=== PATIENT | male | born 1955 | race Caucasian/White ===

== ENCOUNTER → 2017-12-06 15:32 | Outpatient (CLI) | payer OTHER, SELFPAY | PROVIDERS: Family Provider Family Medicine Geriatric Medicine; PCP Family Medicine Geriatric Medicine; Visit Provider Family Medicine Geriatric Medicine | DX: R68.83 Chills (without fever) (principal) | CPT/HCPCS: 87633 ==

== ENCOUNTER → 2018-01-11 06:20 | Outpatient (CLI) | payer OTHER, SELFPAY ==
[2018-01-11 07:35] LABS: Absolute Lymphocyte Count 1.45 X10^3/ul (0.83-4.51); Absolute Neutrophil Count 2.6 X10^3/uL (2.0-7.7); Basophil# 0.04 X10^3/uL; Basophil% 0.9 % (0-1); Eosinophil# 0.08 X10^3/uL; Eosinophils% 1.7 % (0-5); Hematocrit 43.4 % (40-54); Hemoglobin 14.6 g/dl (13.0-16.5); Lymphocyte # 1.45 X10^3/ul (4.0); Lymphocyte % 30.9 % (19-41); Mean Corp Hgb Conc 33.6 g/gl (32-36); Mean Corpuscular Hgb 31.1 pg (27.0-32.0); Mean Corpuscular Volume 92.5 fL (80-94); Mean Platelet Vol. 9.2 fl (6.2-12.0); Monocyte# 0.55 X10^3/uL; Monocyte% 11.7 % (0-10); Neutrophil # 2.57 X10^3/uL (2.7-7.7); Neutrophil % 54.8 % (47-70); Platelet Count 180 K/mm3 (150-450); RBC Distribution Width CV 13.7 % (11.6-14.6); RBC Distribution Width SD 45.7 fl (35.1-43.9); Red Blood Count 4.69 M/mm3 (4.6-6.2); White Blood Count 4.7 K/mm3 (4.4-11.0)
[2018-01-11 07:39] LABS: POSITIVE COUNT NO; POSITIVE DIFFERENTIAL NO; POSITIVE MORPHOLOGY NO
[2018-01-11 08:08] LABS: ALB/GLOB Ratio 1.1 RATIO (0.9-2.4); AST(SGOT) 21 U/L (15-37); Alanine Aminotransfer ALT/SGPT 50 U/L (16-61); Albumin, Serum 3.5 g/dL (3.2-5.0); Alkaline Phosphatase 53 U/L (45-117); Anion Gap 9 (5-15); BUN 14 mg/dL (7-18); BUN/Creat Ratio 11.3 RATIO (10-20); Calcium,Total 8.8 mg/dL (8.5-10.1); Chloride 102 mmol/L (98-107); Cholesterol 238 mg/dL (200); Creatinine, Serum 1.24 mg/dL (0.70-1.30); EST Glomerular Filtration Rate 63 mL/min (>60); Est Glom Filt Rate - Afr Amer 76 mL/min (>60); Globulin 3.1 g/dL (2.2-4.2); Glucose 139 mg/dL (74-106); High Density Lipoprotein 33 mg/dL; Potassium 3.2 mmol/L (3.5-5.1); Protein, Total 6.6 g/dL (6.4-8.2); Sodium Level 140 mmol/L (136-145); Thyroid Stim Hormone (TSH) 4.83 uIU/mL (0.358-3.74); Triglycerides 247 mg/dL; Very Low Density Lipoprotein 49 mg/dL (5-40)
== END ==
PROVIDERS: Family Provider Family Medicine Geriatric Medicine; PCP Family Medicine Geriatric Medicine; Visit Provider Family Medicine Geriatric Medicine
DX: E11.9 Type 2 diabetes mellitus without complications (principal); E23.6 Other disorders of pituitary gland; E78.4 Other hyperlipidemia; I10 Essential (primary) hypertension
CPT/HCPCS: 36415; 80053; 80061; 84403; 84443; 85025

== ENCOUNTER → 2018-01-31 14:41 | Outpatient (CLI) | payer OTHER, SELFPAY ==
[2018-01-31 18:01] LABS: Anion Gap 5 (5-15); BUN 11 mg/dL (7-18); BUN/Creat Ratio 9.2 RATIO (10-20); Calcium,Total 9.8 mg/dL (8.5-10.1); Chloride 103 mmol/L (98-107); EST Glomerular Filtration Rate 65 mL/min (>60); Est Glom Filt Rate - Afr Amer 79 mL/min (>60); Glucose 181 mg/dL (74-106); Potassium 4.5 mmol/L (3.5-5.1); Sodium Level 139 mmol/L (136-145)
== END ==
PROVIDERS: Family Provider Family Medicine Geriatric Medicine; PCP Family Medicine Geriatric Medicine; Visit Provider Family Medicine Geriatric Medicine
DX: E87.6 Hypokalemia (principal)
CPT/HCPCS: 36415; 80048

== ENCOUNTER → 2018-02-01 10:48 | Outpatient (CLI) | payer OTHER, SELFPAY ==
--- NOTE | 2018-02-01 11:00 | CT_ITS ---
STUDY: CT CHEST WITH CONTRAST REASON FOR EXAM: Male, 62 years old. MEDIASTINAL ADENOPATHY, PULMONARY NODULES, SOB, COPD, FORMER SMOKER, RESTRICTIVE LUNG DZ RADIATION DOSAGE (If Supplied By Facility): CTDIvol = ( 16.51 ) mGy, DLP = ( 726.00 ) mGycm TECHNIQUE: Transaxial imaging was performed following intravenous administration of 100 ml of Isovue 300 contrast material. Individualized dose optimization techniques were used for this CT. COMPARISON: None. FINDINGS: Innumerable bilateral lung nodules are noted largest is in the in the lingula measures approximately measures approximately 3 cm in diameter are consistent with metastatic lesions. There is no demonstrated pleural abnormality. Normal heart and pericardium. Normal mediastinum. Bilateral hilar lymphadenopathy largest lymph node is in the right hilum measures approximately 2.7 cm. Normal enhanced pulmonary arteries. Normal aorta arch and descending thoracic aorta. Normal osseous structures. There is no demonstrated abnormality of the visualized upper abdomen. CT/Chest WITH Contrast IMPRESSION: Innumerable metastatic lesions in the right and left lungs. Bilateral metastatic hilar lymph nodes. Electronically Signed: Izzy French MD at 13:30 EDT Tel , Service support ,
[2018-02-01 12:39] VITALS: PULSE 78; PULSE 79; PULSE 81; PULSE 89; PULSE 91; PULSE 93; O2SAT 95; O2SAT 96; O2SAT 97; O2SAT 98
--- NOTE | 2018-02-01 12:43 | CPS ---
Patient had chest pain (4/10) at 3 mins continued walking until 322 into test and rested until 420 and then continued walking at the end of 6 mins had chest pain (3/10) and the pain was gone at 815 into test.
--- NOTE | 2018-02-02 07:16 | WT_ITS ---
PSN 6 Minute Walk Test - 6 Minute Walk Test 6 Minute Walk Test: 6 Minute Walk Test PSN:6-Minute Walk Test Start: 02/01/18 12: 39 Freq: Status: Active Protocol: [id number] Document 02/01/18 12:39 FR (Rec: 02/01/18 12:47 FR [id number]) 6 Minute Walk Test Date Performed 02/01/18 Time Performed 11:00 Height 5 ft 5 in Weight: 113.398 kg Weight in Pounds 250.[address]: Micheal Agrawal Assistive device used: None Pre-test Oxygen Delivery Method Room Air Pulse Ox (%) 97 Pulse Rate (60-100 beats/min) 79 Dyspnea King Scale (0-10) 1 Exertion King Scale (6-20) 7 1st minute Oxygen Delivery Method Room Air Pulse Ox (%) 97 Pulse Rate (60-100 beats/min) 89 2nd minute Oxygen Delivery Method Room Air Pulse Ox (%) 95 Pulse Rate (60-100 beats/min) 89 3rd minute Oxygen Delivery Method Room Air Pulse Ox (%) 96 Pulse Rate (60-100 beats/min) 93 Number of Rests Taken 1 4th minute Oxygen Delivery Method Room Air Pulse Ox (%) 98 Pulse Rate (60-100 beats/min) 89 5th minute Oxygen Delivery Method Room Air Pulse Ox (%) 98 Pulse Rate (60-100 beats/min) 81 6th minute Oxygen Delivery Method Room Air Pulse Ox (%) 98 Pulse Rate (60-100 beats/min) 91 Dyspnea King Scale (0-10) 4 Exertion King Scale (6-20) 10 Post-test Oxygen Delivery Method Room Air Pulse Ox (%) 98 Pulse Rate (60-100 beats/min) 78 Full Laps Walked 11 Partial Lap, Number of Tiles Walked 12 Total Distance Walked (ft) 661 02/01/18 12:43 Cardiopulmonary Services by Gabriela Walker Patient had chest pain (4/10) at 3 mins continued walking until 322 into test and rested until 420 and then continued walking at the end of 6 mins had chest pain (3/10) and the pain was gone at 815 into test. Initialized on 02/01/18 12:43 - END OF NOTE - Interpretation Interpretation: The patient was able to ambulate 661 feet over the course of 6 minutes on room air with no assistive devices and one break. The patient explains no significant desaturation or tachycardia during testing, but did complain of chest pain 3 out of 10 requiring a break. These findings are consistent with a cardiovascular limitation exercise tolerance. - Recommendations Recommendations: No supplemental oxygen is indicated at this time.
== END ==
PROVIDERS: Family Provider Family Medicine Geriatric Medicine; PCP Family Medicine Geriatric Medicine; Visit Provider Internal Medicine Critical Care Medicine
DX: R93.8 Abnormal findings on diagnostic imaging of other specified body structures (principal); J98.4 Other disorders of lung
CPT/HCPCS: 71260; 94618; Q9967

== ENCOUNTER → 2018-02-02 06:50 | Outpatient (CLI) | payer OTHER, SELFPAY ==
--- NOTE | 2018-02-02 08:25 | PFTCOMP_ITS ---
COMPLETE PULMONARY FUNCTION TEST INTERPRETATION Brief HPI: Patient is a 62 year old male, currently under the care of Dr. Agrawal, who presents to [facility] for complete pulmonary function tests secondary to diagnosis of abnormal PFT. Respiratory therapist reports good effort and reproducible results. Interpretation: Forced expiration spirometry shows a moderately-severe large airways obstructive ventilatory defect with an FEV1 of 58% predicted. There is a significant bronchodilator response in both FVC and FEV1 by ATS criteria. Spirograms are of good quality and plateau slowly, indicating slowly emptying areas of the lungs. The respiratory flow volume loop shows decreased expiratory flow rates at all lung volumes consistent with airway obstruction. Lung volumes by body plethysmography show a decreased total lung capacity at 3.76 L, 66% predicted. All other lung volumes are reduced symmetrically. Diffusion capacity by carbon monoxide is normal at 72% predicted. The airway resistance is elevated. Compared to previous pulmonary function tests from 05/31/2017, there has been no significant change. Impression: Fully reversible moderately severe mixed ventilatory defect with no significant change compared to previous testing.
== END ==
PROVIDERS: Family Provider Family Medicine Geriatric Medicine; PCP Family Medicine Geriatric Medicine; Visit Provider Internal Medicine Critical Care Medicine
DX: J98.4 Other disorders of lung (principal)
CPT/HCPCS: 94060; 94726; 94729

== ENCOUNTER 2018-04-22 09:30 | Outpatient (RCR) | payer MEDICAID, SELFPAY | END 2018-05-03 23:59 | LOC: DC 09:30 | PROVIDERS: Family Provider Family Medicine Geriatric Medicine; PCP Family Medicine Geriatric Medicine; Visit Provider Family Medicine Geriatric Medicine | DX: E11.9 Type 2 diabetes mellitus without complications (principal); Z71.3 Dietary counseling and surveillance | CPT/HCPCS: 97802; G0108 ==

== ENCOUNTER → 2018-05-30 17:14 | Outpatient (CLI) | payer MEDICAID, SELFPAY | PROVIDERS: Family Provider Family Medicine Geriatric Medicine; PCP Family Medicine Geriatric Medicine; Visit Provider Family Medicine Geriatric Medicine | DX: M54.5 Low back pain (principal) | CPT/HCPCS: 72114 ==

== ENCOUNTER → 2018-08-16 11:08 | Outpatient (CLI) | payer MEDICAID, SELFPAY ==
[2018-08-16 12:40] LABS: Absolute Lymphocyte Count 1.25 X10^3/ul (0.83-4.51); Absolute Neutrophil Count 2.8 X10^3/uL (2.0-7.7); Basophil# 0.05 X10^3/uL; Basophil% 1.1 % (0-1); Eosinophil# 0.05 X10^3/uL; Eosinophils% 1.1 % (0-5); Hematocrit 48.5 % (40-54); Hemoglobin 15.8 g/dl (13.0-16.5); Lymphocyte # 1.25 X10^3/ul (4.0); Lymphocyte % 27.3 % (19-41); Mean Corp Hgb Conc 32.6 g/gl (32-36); Mean Corpuscular Volume 95.1 fL (80-94); Mean Platelet Vol. 9.8 fl (6.2-12.0); Monocyte# 0.41 X10^3/uL; Neutrophil # 2.81 X10^3/uL (2.7-7.7); Neutrophil % 61.3 % (47-70); Platelet Count 173 K/mm3 (150-450); RBC Distribution Width CV 13.5 % (11.6-14.6); White Blood Count 4.6 K/mm3 (4.4-11.0)
[2018-08-16 12:45] LABS: POSITIVE COUNT NO; POSITIVE DIFFERENTIAL NO; POSITIVE MORPHOLOGY NO
[2018-08-16 13:37] LABS: AST(SGOT) 21 U/L (15-37); Alanine Aminotransfer ALT/SGPT 41 U/L (16-61); Albumin, Serum 3.5 g/dL (3.2-5.0); Alkaline Phosphatase 48 U/L (45-117); Anion Gap 9 (5-15); BUN 15 mg/dL (7-18); BUN/Creat Ratio 13.3 RATIO (10-20); Calcium,Total 8.7 mg/dL (8.5-10.1); Chloride 104 mmol/L (98-107); Creatinine, Serum 1.13 mg/dL (0.70-1.30); EST Glomerular Filtration Rate 70 mL/min (>60); Est Glom Filt Rate - Afr Amer 84 mL/min (>60); Globulin 3.5 g/dL (2.2-4.2); Glucose 156 mg/dL (74-106); PSA,Total - Annual Screen 0.18 ng/mL (0.00-4.00); Potassium 4.2 mmol/L (3.5-5.1); Sodium Level 140 mmol/L (136-145); Thyroid Stim Hormone (TSH) 1.07 uIU/mL (0.358-3.74)
== END ==
PROVIDERS: Family Provider Family Medicine Geriatric Medicine; PCP Family Medicine Geriatric Medicine; Referring Provider Family Medicine Geriatric Medicine; Visit Provider Family Medicine Geriatric Medicine
DX: E23.6 Other disorders of pituitary gland (principal); I10 Essential (primary) hypertension
CPT/HCPCS: 36415; 80053; 84153; 84403; 84443; 85025; G0103

== ENCOUNTER 2018-08-19 10:51 | Outpatient (RCR) | payer MEDICAID, SELFPAY ==
[2018-08-18 12:48] VITALS: BMI 41.8
== END 2018-09-02 23:59 ==
LOC: DC 10:51
PROVIDERS: Family Provider Family Medicine Geriatric Medicine; PCP Family Medicine Geriatric Medicine; Visit Provider Family Medicine Geriatric Medicine
DX: E11.9 Type 2 diabetes mellitus without complications (principal); Z71.3 Dietary counseling and surveillance
CPT/HCPCS: 97803

== ENCOUNTER 2018-09-19 15:41 | Outpatient (RCR) | payer MEDICAID, SELFPAY ==
[2018-08-18 12:48] VITALS: BMI 41.8
== END 2018-09-19 23:59 | disposition home or self-care (01) ==
LOC: DC 15:41
PROVIDERS: Family Provider Family Medicine Geriatric Medicine; PCP Family Medicine Geriatric Medicine; Visit Provider Family Medicine Geriatric Medicine
DX: E11.9 Type 2 diabetes mellitus without complications (principal); Z71.3 Dietary counseling and surveillance
CPT/HCPCS: 97803

== ENCOUNTER → 2018-11-15 13:00 | Outpatient (CLI) | payer MEDICAID, SELFPAY ==
[2018-08-18 12:48] VITALS: BMI 41.8
[2018-11-15 13:47] LABS: Absolute Lymphocyte Count 1.11 X10^3/ul (0.83-4.51); Absolute Neutrophil Count 4.2 X10^3/uL (2.0-7.7); Basophil# 0.02 X10^3/uL; Basophil% 0.3 % (0-1); Eosinophil# 0.08 X10^3/uL; Eosinophils% 1.4 % (0-5); Hematocrit 48.9 % (40-54); Hemoglobin 16.4 g/dl (13.0-16.5); Lymphocyte # 1.11 X10^3/ul (4.0); Lymphocyte % 18.8 % (19-41); Mean Corp Hgb Conc 33.5 g/gl (32-36); Mean Corpuscular Hgb 31.3 pg (27.0-32.0); Mean Corpuscular Volume 93.3 fL (80-94); Mean Platelet Vol. 9.6 fl (6.2-12.0); Monocyte# 0.45 X10^3/uL; Monocyte% 7.6 % (0-10); Neutrophil # 4.21 X10^3/uL (2.7-7.7); Neutrophil % 71.6 % (47-70); Platelet Count 200 K/mm3 (150-450); RBC Distribution Width CV 13.5 % (11.6-14.6); RBC Distribution Width SD 44.7 fl (35.1-43.9); Red Blood Count 5.24 M/mm3 (4.6-6.2); White Blood Count 5.9 K/mm3 (4.4-11.0)
[2018-11-15 13:48] LABS: POSITIVE COUNT NO; POSITIVE DIFFERENTIAL NO; POSITIVE MORPHOLOGY NO
[2018-11-15 14:11] LABS: ALB/GLOB Ratio 1.2 RATIO (0.9-2.4); AST(SGOT) 21 U/L (15-37); Alanine Aminotransfer ALT/SGPT 47 U/L (16-61); Albumin, Serum 3.8 g/dL (3.2-5.0); Alkaline Phosphatase 61 U/L (45-117); Anion Gap 9 (5-15); BUN 16 mg/dL (7-18); BUN/Creat Ratio 11.3 RATIO (10-20); Chloride 101 mmol/L (98-107); Creatinine, Serum 1.41 mg/dL (0.70-1.30); EST Glomerular Filtration Rate 54 mL/min (>60); Est Glom Filt Rate - Afr Amer 65 mL/min (>60); Globulin 3.2 g/dL (2.2-4.2); Glucose 257 mg/dL (74-106); Sodium Level 140 mmol/L (136-145); Thyroid Stim Hormone (TSH) 1.67 uIU/mL (0.358-3.74)
== END ==
PROVIDERS: Family Provider Family Medicine Geriatric Medicine; PCP Family Medicine Geriatric Medicine; Visit Provider Family Medicine Geriatric Medicine
DX: R53.83 Other fatigue (principal)
CPT/HCPCS: 36415; 80053; 84443; 85025

== ENCOUNTER → 2019-02-28 | Outpatient (CLI) | payer MEDICAID, SELFPAY ==
[2018-08-18 12:48] VITALS: BMI 41.8
--- NOTE | 2019-02-28 14:48 | VDLE_ITS ---
Reason For Study: Edema RIGHT LEFT GSV is normal. GSV is normal. CFV is compressible, spontaneous, phasic, CFV is compressible, spontaneous, phasic, competent and demonstrates normal competent, and demonstrates normal augmentation. augmentation. FV is compressible, spontaneous, phasic, FV is compressible, spontaneous, phasic, competent and demonstrates normal competent and demonstrates normal augmentation. augmentation. POP V is compressible, spontaneous, phasic, POP V is compressible, spontaneous, phasic, competent and demonstrates normal competent and demonstrates normal augmentation. augmentation. T/P Trunk is compressible. T/P Trunk is compressible. PTV is compressible. PTV is compressible. RT PerV is compressible. LT PerV is compressible. Procedure Exam performed in department. A preliminary report was called and/or faxed to [facility]. Interpretation Summary Deep veins of the lower extremities are bilaterally patent and compressible segmentally. There is no evidence of deep vein thrombosis on either side. Valvular competence appears intact within the proximal deep venous systems bilaterally. The greater saphenous veins appear bilaterally patent and compressible segmentally. Ordering Physician: Shaun Castle Referring Physician: Shaun Castle Chi Performed By: Denita Casillas RVT
--- NOTE | 2019-02-28 15:19 | RAD_ITS ---
STUDY: X-RAY - LEFT KNEE REASON FOR EXAM: Male, 63 years old. Knee pain. TECHNIQUE: 4 view(s) of the knee. COMPARISON: None. FINDINGS: Normal visualized distal femur. Normal visualized proximal tibia and fibula. Normal proximal tibiofibular articulation. There is no demonstrated fracture. Normal medial femorotibial compartment. Normal lateral femorotibial compartment. Normal patellofemoral articulation. There is no demonstrated joint effusion. There is prominent anterior soft tissue swelling. RAD/Knee 4 or More Views IMPRESSION: Normal x-ray examination of the knee. Electronically Signed: Luis Mittal MD at 15:48 EDT , Service support ,
[2019-02-28 17:26] LABS: Absolute Lymphocyte Count 1.19 X10^3/ul (0.83-4.51); Absolute Neutrophil Count 4.9 X10^3/uL (2.0-7.7); Basophil# 0.02 X10^3/uL; Basophil% 0.3 % (0-1); Eosinophil# 0.05 X10^3/uL; Eosinophils% 0.7 % (0-5); Hematocrit 44.9 % (40-54); Hemoglobin 14.9 g/dl (13.0-16.5); Lymphocyte # 1.19 X10^3/ul (4.0); Lymphocyte % 17.1 % (19-41); Mean Corp Hgb Conc 33.2 g/gl (32-36); Mean Corpuscular Volume 90.5 fL (80-94); Mean Platelet Vol. 9.8 fl (6.2-12.0); Monocyte# 0.77 X10^3/uL; Monocyte% 11.1 % (0-10); Neutrophil % 70.5 % (47-70); Platelet Count 208 K/mm3 (150-450); RBC Distribution Width CV 14.2 % (11.6-14.6); Red Blood Count 4.96 M/mm3 (4.6-6.2)
[2019-02-28 17:33] LABS: POSITIVE COUNT NO; POSITIVE DIFFERENTIAL NO; POSITIVE MORPHOLOGY NO
[2019-02-28 17:34] LABS: Anion Gap 9 (5-15); BUN 11 mg/dL (7-18); Calcium,Total 8.9 mg/dL (8.5-10.1); Chloride 103 mmol/L (98-107); Creatinine, Serum 1.22 mg/dL (0.70-1.30); EST Glomerular Filtration Rate 64 mL/min (>60); Est Glom Filt Rate - Afr Amer 77 mL/min (>60); Glucose 203 mg/dL (74-106); Potassium 3.9 mmol/L (3.5-5.1); Sodium Level 141 mmol/L (136-145); Uric Acid 4.9 mg/dL (3.5-7.2)
[2019-02-28 17:56] LABS: Erythrocyte Sedimentation Rate 13 mm/hr (0-20)
== END | disposition home or self-care (01) ==
PROVIDERS: Family Provider Family Medicine Geriatric Medicine; PCP Family Medicine Geriatric Medicine; Referring Provider Family Medicine Geriatric Medicine; Visit Provider Family Medicine Geriatric Medicine
DX: M25.562 Pain in left knee (principal); R60.0 Localized edema; M10.9 Gout, unspecified
CPT/HCPCS: 36415; 73564; 80048; 84550; 85025; 85652; 86140; 93970

== ENCOUNTER → 2019-08-21 15:19 | Outpatient (CLI) | payer MEDICAID, SELFPAY ==
[2018-08-18 12:48] VITALS: BMI 41.8
[2019-08-21 17:41] LABS: Absolute Lymphocyte Count 1.46 X10^3/uL (0.83-4.51); Absolute Neutrophil Count 3.4 X10^3/uL (2.0-7.7); Basophil# 0.06 X10^3/uL; Basophil% 1.1 % (0-1); Eosinophil# 0.08 X10^3/uL; Eosinophils% 1.5 % (0-5); Hematocrit 41.9 % (40-54); Lymphocyte # 1.46 X10^3/ul (4.0); Lymphocyte % 26.5 % (19-41); Mean Corp Hgb Conc 33.4 g/dL (32-36); Mean Corpuscular Hgb 30.8 pg (27.0-32.0); Mean Corpuscular Volume 92.3 fL (80-94); Mean Platelet Vol. 9.6 fl (6.2-12.0); Monocyte# 0.49 X10^3/uL; Monocyte% 8.9 % (0-10); NRBC Flagged by Analyzer 0 % (0-5); Neutrophil % 61.6 % (47-70); Platelet Count 201 K/mm3 (150-450); RBC Distribution Width CV 12.6 % (11.6-14.6); Red Blood Count 4.54 M/mm3 (4.6-6.2); White Blood Count 5.5 K/mm3 (4.4-11.0)
[2019-08-21 17:58] LABS: ALB/GLOB Ratio 1.2 RATIO (0.9-2.4); AST(SGOT) 18 U/L (15-37); Alanine Aminotransfer ALT/SGPT 55 U/L (16-61); Albumin, Serum 3.7 g/dL (3.2-5.0); Alkaline Phosphatase 69 U/L (45-117); Anion Gap 9 (5-15); BUN 14 mg/dL (7-18); BUN/Creat Ratio 12.3 RATIO (10-20); Calcium,Total 9.3 mg/dL (8.5-10.1); Chloride 100 mmol/L (98-107); Creatinine, Serum 1.14 mg/dL (0.70-1.30); EST Glomerular Filtration Rate 69 mL/min (>60); Est Glom Filt Rate - Afr Amer 83 mL/min (>60); Globulin 3.2 g/dL (2.2-4.2); Glucose 262 mg/dL (74-106); PSA,Total - Annual Screen 0.09 ng/mL (0.00-4.00); Potassium 3.6 mmol/L (3.5-5.1); Protein, Total 6.9 g/dL (6.4-8.2); Sodium Level 139 mmol/L (136-145); Thyroid Stim Hormone (TSH) 1.08 uIU/mL (0.358-3.74)
== END ==
LOC: POLAB3 15:20
PROVIDERS: Family Provider Family Medicine Geriatric Medicine; PCP Family Medicine Geriatric Medicine; Visit Provider Family Medicine Geriatric Medicine
DX: E11.9 Type 2 diabetes mellitus without complications (principal); I10 Essential (primary) hypertension; Z12.5 Encounter for screening for malignant neoplasm of prostate
CPT/HCPCS: 36415; 80053; 84153; 84403; 84443; 85025; G0103

== ENCOUNTER → 2019-11-27 10:37 | Outpatient (CLI) | payer MEDICARE, SELFPAY ==
[2019-08-23 09:24] VITALS: BMI 42.5
[2019-11-27 12:19] LABS: Absolute Lymphocyte Count 1.57 X10^3/uL (0.83-4.51); Absolute Neutrophil Count 4.1 X10^3/uL (2.0-7.7); Basophil# 0.05 X10^3/uL; Basophil% 0.8 % (0-1); Eosinophil# 0.05 X10^3/uL; Eosinophils% 0.8 % (0-5); Hematocrit 44.3 % (40-54); Hemoglobin 14.2 g/dL (13.0-16.5); Lymphocyte # 1.57 X10^3/ul (4.0); Lymphocyte % 24.7 % (19-41); Mean Corp Hgb Conc 32.1 g/dL (32-36); Mean Corpuscular Hgb 29.6 pg (27.0-32.0); Mean Corpuscular Volume 92.5 fL (80-94); Mean Platelet Vol. 9.2 fl (6.2-12.0); Monocyte# 0.58 X10^3/uL; Monocyte% 9.1 % (0-10); NRBC Flagged by Analyzer 0 % (0-5); Neutrophil # 4.07 X10^3/uL (2.7-7.7); Platelet Count 242 K/mm3 (150-450); RBC Distribution Width CV 13.4 % (11.6-14.6); RBC Distribution Width SD 45.8 fl (35.1-43.9); Red Blood Count 4.79 M/mm3 (4.6-6.2); White Blood Count 6.4 K/mm3 (4.4-11.0)
[2019-11-27 12:24] LABS: ALB/GLOB Ratio 1.1 RATIO (0.9-2.4); AST(SGOT) 12 U/L (15-37); Alanine Aminotransfer ALT/SGPT 54 U/L (16-61); Albumin, Serum 3.7 g/dL (3.2-5.0); Alkaline Phosphatase 58 U/L (45-117); Anion Gap 7 (5-15); BUN 15 mg/dL (7-18); BUN/Creat Ratio 14.2 RATIO (10-20); Calcium,Total 9.7 mg/dL (8.5-10.1); Chloride 102 mmol/L (98-107); Creatinine, Serum 1.06 mg/dL (0.70-1.30); EST Glomerular Filtration Rate 75 mL/min (>60); Est Glom Filt Rate - Afr Amer 90 mL/min (>60); Globulin 3.5 g/dL (2.2-4.2); Glucose 156 mg/dL (74-106); Potassium 3.9 mmol/L (3.5-5.1); Protein, Total 7.2 g/dL (6.4-8.2); Sodium Level 141 mmol/L (136-145); Thyroid Stim Hormone (TSH) 1.48 uIU/mL (0.358-3.74)
== END ==
PROVIDERS: PCP Family Medicine Geriatric Medicine; Visit Provider Family Medicine Geriatric Medicine
DX: E11.9 Type 2 diabetes mellitus without complications (principal); E23.6 Other disorders of pituitary gland; R53.83 Other fatigue
CPT/HCPCS: 36415; 80053; 84403; 84443; 85025

== ENCOUNTER → 2020-02-19 11:38 | Outpatient (CLI) | payer MEDICARE, SELFPAY ==
[2019-08-23 09:24] VITALS: BMI 42.5
[2020-02-19 12:57] LABS: Absolute Lymphocyte Count 1.35 X10^3/uL (0.83-4.51); Absolute Neutrophil Count 3.5 X10^3/uL (2.0-7.7); Basophil# 0.04 X10^3/uL; Basophil% 0.7 % (0-1); Eosinophil# 0.08 X10^3/uL; Eosinophils% 1.5 % (0-5); Hematocrit 40.8 % (40-54); Hemoglobin 13.2 g/dL (13.0-16.5); Lymphocyte # 1.35 X10^3/ul (4.0); Mean Corp Hgb Conc 32.4 g/dL (32-36); Mean Corpuscular Hgb 29.8 pg (27.0-32.0); Mean Corpuscular Volume 92.1 fL (80-94); Mean Platelet Vol. 9.9 fl (6.2-12.0); Monocyte# 0.38 X10^3/uL; NRBC Flagged by Analyzer 0 % (0-5); Neutrophil # 3.53 X10^3/uL (2.7-7.7); Neutrophil % 65.4 % (47-70); Platelet Count 242 K/mm3 (150-450); RBC Distribution Width SD 43.7 fl (35.1-43.9); Red Blood Count 4.43 M/mm3 (4.6-6.2); White Blood Count 5.4 K/mm3 (4.4-11.0)
[2020-02-19 13:06] LABS: Vitamin D,25 Hydroxy 25.6 ng/mL
[2020-02-19 13:20] LABS: ALB/GLOB Ratio 1.2 RATIO (0.9-2.4); AST(SGOT) 18 U/L (15-37); Alanine Aminotransfer ALT/SGPT 54 U/L (16-61); Albumin, Serum 3.6 g/dL (3.2-5.0); Alkaline Phosphatase 49 U/L (45-117); Anion Gap 8 (5-15); BUN 12 mg/dL (7-18); BUN/Creat Ratio 11.7 RATIO (10-20); Calcium,Total 9.5 mg/dL (8.5-10.1); Chloride 100 mmol/L (98-107); Creatinine, Serum 1.03 mg/dL (0.70-1.30); EST Glomerular Filtration Rate 77 mL/min (>60); Est Glom Filt Rate - Afr Amer 93 mL/min (>60); Globulin 2.9 g/dL (2.2-4.2); Glucose 149 mg/dL (74-106); Potassium 3.9 mmol/L (3.5-5.1); Protein, Total 6.5 g/dL (6.4-8.2); Sodium Level 138 mmol/L (136-145); Thyroid Stim Hormone (TSH) 0.03 uIU/mL (0.358-3.74); Uric Acid 7.8 mg/dL (3.5-7.2)
== END ==
PROVIDERS: PCP Family Medicine Geriatric Medicine; Visit Provider Family Medicine Geriatric Medicine
DX: E11.9 Type 2 diabetes mellitus without complications (principal); E23.6 Other disorders of pituitary gland; E55.9 Vitamin D deficiency, unspecified; I10 Essential (primary) hypertension; M10.9 Gout, unspecified
CPT/HCPCS: 36415; 80053; 82306; 84403; 84443; 84550; 85025

== ENCOUNTER → 2020-05-20 10:43 | Outpatient (CLI) | payer MEDICARE, SELFPAY ==
[2019-08-23 09:24] VITALS: BMI 42.5
[2020-05-20 12:40] LABS: Absolute Lymphocyte Count 1.34 X10^3/uL (0.83-4.51); Absolute Neutrophil Count 3.7 X10^3/uL (2.0-7.7); Basophil# 0.06 X10^3/uL; Basophil% 1.1 % (0-1); Eosinophils% 1.8 % (0-5); Hematocrit 41.5 % (40-54); Hemoglobin 13.4 g/dL (13.0-16.5); Lymphocyte # 1.34 X10^3/ul (4.0); Lymphocyte % 23.7 % (19-41); Mean Corp Hgb Conc 32.3 g/dL (32-36); Mean Corpuscular Hgb 29.5 pg (27.0-32.0); Mean Corpuscular Volume 91.4 fL (80-94); Mean Platelet Vol. 9.3 fl (6.2-12.0); Monocyte# 0.41 X10^3/uL; Monocyte% 7.2 % (0-10); NRBC Flagged by Analyzer 0 % (0-5); Neutrophil # 3.73 X10^3/uL (2.7-7.7); Neutrophil % 65.8 % (47-70); Platelet Count 212 K/mm3 (150-450); Red Blood Count 4.54 M/mm3 (4.6-6.2); White Blood Count 5.7 K/mm3 (4.4-11.0)
[2020-05-20 13:10] LABS: ALB/GLOB Ratio 1.2 RATIO (0.9-2.4); AST(SGOT) 17 U/L (15-37); Alanine Aminotransfer ALT/SGPT 51 U/L (16-61); Albumin, Serum 3.6 g/dL (3.2-5.0); Alkaline Phosphatase 50 U/L (45-117); Anion Gap 7 (5-15); BUN 11 mg/dL (7-18); BUN/Creat Ratio 11.6 RATIO (10-20); Calcium,Total 9.2 mg/dL (8.5-10.1); Chloride 102 mmol/L (98-107); Creatinine, Serum 0.95 mg/dL (0.70-1.30); EST Glomerular Filtration Rate 85 mL/min (>60); Est Glom Filt Rate - Afr Amer 103 mL/min (>60); Glucose 84 mg/dL (74-106); Potassium 3.8 mmol/L (3.5-5.1); Protein, Total 6.6 g/dL (6.4-8.2); Sodium Level 139 mmol/L (136-145); Thyroid Stim Hormone (TSH) 0.24 uIU/mL (0.358-3.74)
[2020-05-20 13:51] LABS: Vitamin D,25 Hydroxy 47.5 ng/mL
== END ==
PROVIDERS: PCP Family Medicine Geriatric Medicine; Visit Provider Family Medicine Geriatric Medicine
DX: I10 Essential (primary) hypertension (principal); E23.6 Other disorders of pituitary gland; E55.9 Vitamin D deficiency, unspecified
CPT/HCPCS: 36415; 80053; 82306; 84403; 84443; 85025

== ENCOUNTER → 2020-07-11 09:16 | Outpatient (CLI) | payer MEDICARE, SELFPAY ==
[2019-08-23 09:24] VITALS: BMI 42.5
[2020-07-11 12:50] LABS: Thyroid Stim Hormone (TSH) 0.51 uIU/mL (0.358-3.74)
== END ==
PROVIDERS: PCP Family Medicine Geriatric Medicine; Visit Provider Family Medicine Geriatric Medicine
DX: E03.9 Hypothyroidism, unspecified (principal)
CPT/HCPCS: 36415; 84443

== ENCOUNTER → 2020-08-23 09:08 | Outpatient (CLI) | payer BC, SELFPAY ==
[2019-08-23 09:24] VITALS: BMI 42.5
[2020-08-23 11:58] LABS: Absolute Lymphocyte Count 1.45 X10^3/uL (0.83-4.51); Absolute Neutrophil Count 3.7 X10^3/uL (2.0-7.7); Basophil# 0.04 X10^3/uL; Basophil% 0.7 % (0-1); Eosinophil# 0.08 X10^3/uL; Eosinophils% 1.4 % (0-5); Hemoglobin 13.9 g/dL (13.0-16.5); Lymphocyte # 1.45 X10^3/ul (4.0); Lymphocyte % 25.5 % (19-41); Mean Corp Hgb Conc 31.6 g/dL (32-36); Mean Corpuscular Hgb 29.8 pg (27.0-32.0); Mean Corpuscular Volume 94.4 fL (80-94); Mean Platelet Vol. 9.7 fl (6.2-12.0); Monocyte# 0.41 X10^3/uL; Monocyte% 7.2 % (0-10); NRBC Flagged by Analyzer 0 % (0-5); Neutrophil # 3.69 X10^3/uL (2.7-7.7); Platelet Count 229 K/mm3 (150-450); RBC Distribution Width CV 13.2 % (11.6-14.6); RBC Distribution Width SD 45.5 fl (35.1-43.9); Red Blood Count 4.66 M/mm3 (4.6-6.2); White Blood Count 5.7 K/mm3 (4.4-11.0)
[2020-08-23 12:23] LABS: Vitamin D,25 Hydroxy 30.6 ng/mL
[2020-08-23 12:24] LABS: ALB/GLOB Ratio 1.3 RATIO (0.9-2.4); AST(SGOT) 13 U/L (15-37); Alanine Aminotransfer ALT/SGPT 37 U/L (16-61); Alkaline Phosphatase 50 U/L (45-117); Anion Gap 3 (5-15); BUN 17 mg/dL (7-18); Calcium,Total 9.7 mg/dL (8.5-10.1); Chloride 104 mmol/L (98-107); Creatinine, Serum 1.13 mg/dL (0.70-1.30); EST Glomerular Filtration Rate 69 mL/min (>60); Est Glom Filt Rate - Afr Amer 84 mL/min (>60); Glucose 120 mg/dL (74-106); Potassium 4.2 mmol/L (3.5-5.1); Sodium Level 139 mmol/L (136-145); Thyroid Stim Hormone (TSH) 1.24 uIU/mL (0.358-3.74)
== END ==
LOC: POLAB3 09:10
PROVIDERS: PCP Family Medicine Geriatric Medicine; Visit Provider Family Medicine Geriatric Medicine
DX: E23.6 Other disorders of pituitary gland (principal); E55.9 Vitamin D deficiency, unspecified; I10 Essential (primary) hypertension; Z12.5 Encounter for screening for malignant neoplasm of prostate
CPT/HCPCS: 36415; 80053; 82306; 84153; 84403; 84443; 85025; G0103

== ENCOUNTER → 2020-10-10 07:58 | Outpatient (CLI) | payer MEDICARE, SELFPAY ==
[2020-08-26 13:43] VITALS: BMI 34.6
--- NOTE | 2020-10-10 08:04 | MRI_ITS ---
STUDY: MRI BRAIN WITHOUT CONTRAST REASON FOR EXAM: Male, 64 years old. stroke, right lip numbness, right ear/jaw pain TECHNIQUE: Standardized multiplanar fat and water weighted pulse sequences were obtained. COMPARISON: None. FINDINGS: There is mild cerebral atrophy with widening of the extra-axial spaces and ventricular dilatation. There are a limited number of small white matter hyperintensities, distributed throughout the deep white matter tracts of the cerebral hemispheres, consistent with mild chronic white matter ischemic changes. There is no evidence for recent intracranial ischemia or other cause of cytotoxic edema on diffusion weighted imaging (DWI). Normal T2* images of the brain without demonstrated susceptibility artifact. There is no demonstrated hemosiderin stain. Normal bilateral basal ganglia. Normal thalami. There is no extra-axial fluid accumulation. Normal flow voids within the major intracranial circulation suggesting patency by spin echo criteria. Normal sella turcica, pituitary gland, infundibular stalk, optic chiasm and hypothalamus. Normal tectal plate and pineal gland. Normal midbrain, mellissa and medulla. Normal cerebellum. Normal basal cisterns. Normal bilateral temporal bones. Normal bilateral internal auditory canals. No demonstrated orbital abnormality, within the constraints of a routine brain study. Normal visualized paranasal sinuses. Normal calvarium and skull base. Normal visualized soft tissue structures. Normal visualized upper cervical spine. MRI/Brain without Contrast IMPRESSION: Involutional changes of the brain, as described above. No acute infarct. Electronically Signed: Aki Bennett MD at 9:13 EST Tel , Service support ,
== END ==
PROVIDERS: PCP Family Medicine Geriatric Medicine; Referring Provider Family Medicine Geriatric Medicine; Visit Provider Family Medicine Geriatric Medicine
DX: Z86.73 Personal history of transient ischemic attack (TIA), and cerebral infarction without residual deficits (principal)
CPT/HCPCS: 70551

== ENCOUNTER → 2020-11-22 09:04 | Outpatient (CLI) | payer MEDICARE, SELFPAY ==
[2020-08-26 13:43] VITALS: BMI 34.6
[2020-11-22 13:06] LABS: Absolute Lymphocyte Count 1.68 X10^3/uL (0.83-4.51); Absolute Neutrophil Count 3.9 X10^3/uL (2.0-7.7); Basophil# 0.06 X10^3/uL; Basophil% 0.9 % (0-1); Eosinophil# 0.14 X10^3/uL; Eosinophils% 2.2 % (0-5); Hematocrit 42.4 % (40-54); Hemoglobin 13.6 g/dL (13.0-16.5); Lymphocyte # 1.68 X10^3/ul (4.0); Lymphocyte % 26.6 % (19-41); Mean Corp Hgb Conc 32.1 g/dL (32-36); Mean Corpuscular Hgb 29.7 pg (27.0-32.0); Mean Corpuscular Volume 92.6 fL (80-94); Mean Platelet Vol. 8.8 fl (6.2-12.0); Monocyte# 0.47 X10^3/uL; Monocyte% 7.4 % (0-10); NRBC Flagged by Analyzer 0 % (0-5); Neutrophil # 3.94 X10^3/uL (2.7-7.7); Neutrophil % 62.4 % (47-70); Platelet Count 261 K/mm3 (150-450); RBC Distribution Width CV 12.5 % (11.6-14.6); RBC Distribution Width SD 42.5 fl (35.1-43.9); Red Blood Count 4.58 M/mm3 (4.6-6.2); White Blood Count 6.3 K/mm3 (4.4-11.0)
[2020-11-22 14:16] LABS: ALB/GLOB Ratio 1.1 RATIO (0.9-2.4); AST(SGOT) 11 U/L (15-37); Alanine Aminotransfer ALT/SGPT 28 U/L (16-61); Albumin, Serum 3.7 g/dL (3.2-5.0); Alkaline Phosphatase 61 U/L (45-117); Anion Gap 4 (5-15); BUN 15 mg/dL (7-18); BUN/Creat Ratio 14.4 RATIO (10-20); Calcium,Total 9.4 mg/dL (8.5-10.1); Chloride 104 mmol/L (98-107); Creatinine, Serum 1.04 mg/dL (0.70-1.30); EST Glomerular Filtration Rate 76 mL/min (>60); Est Glom Filt Rate - Afr Amer 92 mL/min (>60); Globulin 3.4 g/dL (2.2-4.2); Glucose 92 mg/dL (74-106); Potassium 3.7 mmol/L (3.5-5.1); Protein, Total 7.1 g/dL (6.4-8.2); Sodium Level 139 mmol/L (136-145); Thyroid Stim Hormone (TSH) 1.72 uIU/mL (0.358-3.74)
== END ==
PROVIDERS: PCP Family Medicine Geriatric Medicine; Visit Provider Family Medicine Geriatric Medicine
DX: E11.65 Type 2 diabetes mellitus with hyperglycemia (principal); I10 Essential (primary) hypertension; E55.9 Vitamin D deficiency, unspecified; E23.6 Other disorders of pituitary gland
CPT/HCPCS: 36415; 80053; 82306; 84403; 84443; 85025

== ENCOUNTER → 2021-02-20 11:55 | Outpatient (CLI) | payer MEDICARE, SELFPAY ==
[2020-08-26 13:43] VITALS: BMI 34.6
[2021-02-20 12:33] LABS: Absolute Lymphocyte Count 1.68 X10^3/uL (0.83-4.51); Absolute Neutrophil Count 3.8 X10^3/uL (2.0-7.7); Basophil# 0.05 X10^3/uL; Basophil% 0.8 % (0-1); Eosinophil# 0.14 X10^3/uL; Eosinophils% 2.2 % (0-5); Hematocrit 39.6 % (40-54); Hemoglobin 13.1 g/dL (13.0-16.5); Lymphocyte # 1.68 X10^3/ul (0.83-4.51); Lymphocyte % 26.6 % (19-41); Mean Corp Hgb Conc 33.1 g/dL (32-36); Mean Corpuscular Hgb 29.6 pg (27.0-32.0); Mean Corpuscular Volume 89.6 fL (80-94); Mean Platelet Vol. 9.3 fl (6.2-12.0); Monocyte# 0.59 X10^3/uL; Monocyte% 9.3 % (0-10); NRBC Flagged by Analyzer 0 % (0-5); Neutrophil # 3.84 X10^3/uL (2.7-7.7); Neutrophil % 60.8 % (47-70); Platelet Count 217 K/mm3 (150-450); RBC Distribution Width CV 12.7 % (11.6-14.6); RBC Distribution Width SD 42.2 fl (35.1-43.9); Red Blood Count 4.42 M/mm3 (4.6-6.2); White Blood Count 6.3 K/mm3 (4.4-11.0)
[2021-02-20 12:50] LABS: Vitamin D,25 Hydroxy 31.6 ng/mL
[2021-02-20 12:59] LABS: ALB/GLOB Ratio 1.3 RATIO (0.9-2.4); AST(SGOT) 19 U/L (15-37); Alanine Aminotransfer ALT/SGPT 32 U/L (16-61); Albumin, Serum 3.9 g/dL (3.2-5.0); Alkaline Phosphatase 47 U/L (45-117); Anion Gap 7 (5-15); BUN 16 mg/dL (7-18); BUN/Creat Ratio 13.7 RATIO (10-20); Calcium,Total 9.3 mg/dL (8.5-10.1); Chloride 102 mmol/L (98-107); Creatinine, Serum 1.17 mg/dL (0.70-1.30); EST Glomerular Filtration Rate 66 mL/min (>60); Est Glom Filt Rate - Afr Amer 80 mL/min (>60); Glucose 100 mg/dL (74-106); Potassium 3.8 mmol/L (3.5-5.1); Protein, Total 6.9 g/dL (6.4-8.2); Sodium Level 139 mmol/L (136-145); Thyroid Stim Hormone (TSH) 0.45 uIU/mL (0.358-3.74)
== END ==
PROVIDERS: PCP Family Medicine Geriatric Medicine; Visit Provider Family Medicine Geriatric Medicine
DX: E23.6 Other disorders of pituitary gland (principal); E55.9 Vitamin D deficiency, unspecified; I10 Essential (primary) hypertension
CPT/HCPCS: 36415; 80053; 82306; 84403; 84443; 85025

== ENCOUNTER → 2021-04-16 10:57 | Outpatient (CLI) | payer MEDICARE, SELFPAY ==
[2020-08-26 13:43] VITALS: BMI 34.6
[2021-04-16 12:22] LABS: Absolute Lymphocyte Count 1.36 X10^3/uL (0.83-4.51); Absolute Neutrophil Count 3.7 X10^3/uL (2.0-7.7); Basophil# 0.06 X10^3/uL; Basophil% 1.1 % (0-1); Eosinophil# 0.07 X10^3/uL; Eosinophils% 1.2 % (0-5); Hematocrit 41.4 % (40-54); Lymphocyte # 1.36 X10^3/ul (0.83-4.51); Lymphocyte % 23.9 % (19-41); Mean Corp Hgb Conc 33.8 g/dL (32-36); Mean Corpuscular Hgb 30.2 pg (27.0-32.0); Mean Corpuscular Volume 89.2 fL (80-94); Mean Platelet Vol. 9.3 fl (6.2-12.0); Monocyte# 0.45 X10^3/uL; Monocyte% 7.9 % (0-10); NRBC Flagged by Analyzer 0 % (0-5); Neutrophil # 3.72 X10^3/uL (2.7-7.7); Neutrophil % 65.5 % (47-70); Platelet Count 221 K/mm3 (150-450); RBC Distribution Width CV 12.9 % (11.6-14.6); RBC Distribution Width SD 42.1 fl (35.1-43.9); Red Blood Count 4.64 M/mm3 (4.6-6.2); White Blood Count 5.7 K/mm3 (4.4-11.0)
[2021-04-16 12:54] LABS: ALB/GLOB Ratio 1.3 RATIO (0.9-2.4); AST(SGOT) 17 U/L (15-37); Alanine Aminotransfer ALT/SGPT 37 U/L (16-61); Albumin, Serum 3.9 g/dL (3.2-5.0); Alkaline Phosphatase 47 U/L (45-117); Anion Gap 9 (5-15); BUN 20 mg/dL (7-18); BUN/Creat Ratio 19.6 RATIO (10-20); Calcium,Total 9.8 mg/dL (8.5-10.1); Chloride 101 mmol/L (98-107); Creatinine, Serum 1.02 mg/dL (0.70-1.30); EST Glomerular Filtration Rate 78 mL/min (>60); Est Glom Filt Rate - Afr Amer 94 mL/min (>60); Globulin 3.1 g/dL (2.2-4.2); Glucose 105 mg/dL (74-106); Potassium 3.3 mmol/L (3.5-5.1); Sodium Level 139 mmol/L (136-145); Thyroid Stim Hormone (TSH) 0.92 uIU/mL (0.358-3.74)
== END ==
PROVIDERS: PCP Family Medicine Geriatric Medicine; Visit Provider Family Medicine Geriatric Medicine
DX: I10 Essential (primary) hypertension (principal)
CPT/HCPCS: 36415; 80053; 84443; 85025

== ENCOUNTER → 2021-04-24 09:19 | Outpatient (CLI) | payer MEDICARE, SELFPAY ==
[2020-08-26 13:43] VITALS: BMI 34.6
[2021-04-24 12:50] LABS: Anion Gap 6 (5-15); BUN 16 mg/dL (7-18); BUN/Creat Ratio 13.8 RATIO (10-20); Calcium,Total 9.2 mg/dL (8.5-10.1); Chloride 104 mmol/L (98-107); Creatinine, Serum 1.16 mg/dL (0.70-1.30); EST Glomerular Filtration Rate 67 mL/min (>60); Est Glom Filt Rate - Afr Amer 81 mL/min (>60); Glucose 113 mg/dL (74-106); Potassium 4.3 mmol/L (3.5-5.1); Sodium Level 137 mmol/L (136-145)
== END ==
PROVIDERS: PCP Family Medicine Geriatric Medicine; Visit Provider Family Medicine Geriatric Medicine
DX: E87.6 Hypokalemia (principal)
CPT/HCPCS: 36415; 80048

== ENCOUNTER → 2021-05-14 16:14 | Outpatient (CLI) | payer MEDICARE, SELFPAY ==
[2020-08-26 13:43] VITALS: BMI 34.6
[2021-05-14 17:28] LABS: Absolute Lymphocyte Count 1.76 X10^3/uL (0.83-4.51); Absolute Neutrophil Count 4.2 X10^3/uL (2.0-7.7); Basophil# 0.05 X10^3/uL; Basophil% 0.7 % (0-1); Eosinophil# 0.09 X10^3/uL; Eosinophils% 1.3 % (0-5); Hemoglobin 14.1 g/dL (13.0-16.5); Lymphocyte # 1.76 X10^3/ul (0.83-4.51); Lymphocyte % 26.2 % (19-41); Mean Corp Hgb Conc 32.8 g/dL (32-36); Mean Corpuscular Hgb 30.1 pg (27.0-32.0); Mean Corpuscular Volume 91.9 fL (80-94); Mean Platelet Vol. 9.1 fl (6.2-12.0); Monocyte# 0.57 X10^3/uL; Monocyte% 8.5 % (0-10); NRBC Flagged by Analyzer 0 % (0-5); Neutrophil # 4.22 X10^3/uL (2.7-7.7); Platelet Count 234 K/mm3 (150-450); RBC Distribution Width SD 43.5 fl (35.1-43.9); Red Blood Count 4.68 M/mm3 (4.6-6.2); White Blood Count 6.7 K/mm3 (4.4-11.0)
[2021-05-14 18:07] LABS: Vitamin D,25 Hydroxy 44.5 ng/mL
[2021-05-14 18:16] LABS: ALB/GLOB Ratio 1.3 RATIO (0.9-2.4); AST(SGOT) 15 U/L (15-37); Alanine Aminotransfer ALT/SGPT 39 U/L (16-61); Alkaline Phosphatase 48 U/L (45-117); Anion Gap 10 (5-15); BUN 17 mg/dL (7-18); BUN/Creat Ratio 13.9 RATIO (10-20); Calcium,Total 9.3 mg/dL (8.5-10.1); Chloride 104 mmol/L (98-107); Creatinine, Serum 1.22 mg/dL (0.70-1.30); EST Glomerular Filtration Rate 63 mL/min (>60); Est Glom Filt Rate - Afr Amer 76 mL/min (>60); Glucose 83 mg/dL (74-106); Potassium 3.7 mmol/L (3.5-5.1); Sodium Level 140 mmol/L (136-145); Thyroid Stim Hormone (TSH) 0.62 uIU/mL (0.358-3.74); Uric Acid 8.8 mg/dL (3.5-7.2)
== END ==
PROVIDERS: PCP Family Medicine Geriatric Medicine; Visit Provider Family Medicine Geriatric Medicine
DX: E11.9 Type 2 diabetes mellitus without complications (principal); E23.6 Other disorders of pituitary gland; E55.9 Vitamin D deficiency, unspecified; I10 Essential (primary) hypertension; M10.9 Gout, unspecified
CPT/HCPCS: 36415; 80053; 82306; 84403; 84443; 84550; 85025

== ENCOUNTER → 2021-08-25 11:53 | Outpatient (CLI) | payer MEDICARE, SELFPAY ==
[2021-08-25 12:40] LABS: Absolute Lymphocyte Count 1.19 X10^3/uL (0.83-4.51); Absolute Neutrophil Count 3.5 X10^3/uL (2.0-7.7); Basophil# 0.05 X10^3/uL; Eosinophil# 0.07 X10^3/uL; Eosinophils% 1.4 % (0-5); Hematocrit 42.1 % (40-54); Hemoglobin 13.5 g/dL (13.0-16.5); Lymphocyte # 1.19 X10^3/ul (0.83-4.51); Lymphocyte % 23.2 % (19-41); Mean Corp Hgb Conc 32.1 g/dL (32-36); Mean Corpuscular Hgb 29.7 pg (27.0-32.0); Mean Corpuscular Volume 92.7 fL (80-94); Mean Platelet Vol. 9.5 fl (6.2-12.0); Monocyte# 0.34 X10^3/uL; Monocyte% 6.6 % (0-10); NRBC Flagged by Analyzer 0 % (0-5); Neutrophil # 3.46 X10^3/uL (2.7-7.7); Neutrophil % 67.4 % (47-70); Platelet Count 214 K/mm3 (150-450); RBC Distribution Width CV 12.8 % (11.6-14.6); RBC Distribution Width SD 43.8 fl (35.1-43.9); Red Blood Count 4.54 M/mm3 (4.6-6.2); White Blood Count 5.1 K/mm3 (4.4-11.0)
[2021-08-25 13:19] LABS: ALB/GLOB Ratio 1.1 RATIO (0.9-2.4); AST(SGOT) 14 U/L (15-37); Alanine Aminotransfer ALT/SGPT 32 U/L (16-61); Albumin, Serum 3.5 g/dL (3.2-5.0); Alkaline Phosphatase 56 U/L (45-117); Anion Gap 6 (5-15); BUN 15 mg/dL (7-18); BUN/Creat Ratio 12.8 RATIO (10-20); Calcium,Total 9.6 mg/dL (8.5-10.1); Chloride 103 mmol/L (98-107); Creatinine, Serum 1.17 mg/dL (0.70-1.30); EST Glomerular Filtration Rate 66 mL/min (>60); Est Glom Filt Rate - Afr Amer 80 mL/min (>60); Globulin 3.3 g/dL (2.2-4.2); Glucose 157 mg/dL (74-106); Potassium 4.1 mmol/L (3.5-5.1); Protein, Total 6.8 g/dL (6.4-8.2); Sodium Level 139 mmol/L (136-145); Thyroid Stim Hormone (TSH) 0.33 uIU/mL (0.358-3.74)
== END ==
PROVIDERS: PCP Family Medicine Geriatric Medicine; Visit Provider Family Medicine Geriatric Medicine
DX: E23.6 Other disorders of pituitary gland (principal); E11.9 Type 2 diabetes mellitus without complications; E55.9 Vitamin D deficiency, unspecified; I10 Essential (primary) hypertension; M10.9 Gout, unspecified
CPT/HCPCS: 36415; 80053; 82306; 84443; 85025

== ENCOUNTER 2021-10-13 10:09 | Outpatient (CLI) | payer MEDICARE, SELFPAY ==
[2021-10-13 12:09] LABS: Thyroid Stim Hormone (TSH) 1.97 uIU/mL (0.358-3.74)
== END 2021-10-13 23:59 | disposition short-term general hospital (02) ==
LOC: POLAB3 10:10
PROVIDERS: PCP Family Medicine Geriatric Medicine; Visit Provider Family Medicine Geriatric Medicine
DX: E03.9 Hypothyroidism, unspecified (principal)
CPT/HCPCS: 36415; 84443

== ENCOUNTER 2021-11-29 16:01 | Emergency (ER) | payer MEDICARE, SELFPAY ==
[2021-11-29 16:02] VITALS: BP 201/90; PULSE 80; RESP 16; TEMP 36.2; O2SAT 100; BMI 35.6
--- NOTE | 2021-11-29 16:21 | EDS_ITS ---
HPI History of Present Illness HPI Narrative: Patient presents with a right thumb avulsion while cooking. No other injuries. Tetanus is not up-to-date. He cannot get the bleeding controlled. He is not anticoagulated. 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 Hiatal hernia HLD (hyperlipidemia) Hypertriglyceridemia Hypogonadism Hypothyroidism Labile hypertension Lymphadenopathy Mixed obstructive and restrictive ventilatory defect Obesity Obesity Obstructive sleep apnea syndrome Red man syndrome Shingles Type 2 diabetes mellitus Umbilical hernia Home Medications hydrochlorothiazide 25 mg PO DAILY 04/08/17 [History Last Taken Unknown] metoprolol tartrate 100 mg PO DAILY 04/08/17 [History Last Taken 04/13/17 08:00] montelukast 10 mg PO DAILY 04/08/17 [History Last Taken Unknown] omeprazole 40 mg PO DAILY 04/08/17 [History Last Taken 04/13/17 08:00] testosterone cypionate 200 mg IM Q14D 04/08/17 [History Last Taken Unknown] aspirin 81 mg tablet,delayed release 81 mg PO QDAY 10/01/17 [History Last Taken Unknown] albuterol sulfate 90 mcg/actuation aerosol inhaler 2 puff INHALATION Q4H PRN #1 device 10/12/17 [Rx Last Taken Unknown] albuterol sulfate 2.5 mg INHALATION Q4H PRN #180 vial 11/07/18 [Rx Last Taken Unknown] budesonide-formoterol HFA 160 mcg-4.5 mcg/actuation aerosol inhaler 2 inh INHALATION Q12H #1 device 02/13/19 [Rx Last Taken Unknown] levothyroxine 137 mcg tablet 137 mcg PO DAILY 08/26/20 [History Last Taken Unknown] Allergy/AdvReac Type Severity Reaction Status Date / Time cephalexin Allergy Hives Verified 08/26/20 13:40 Cephalosporins Allergy Hives Verified 08/26/20 13:40 cetirizine Allergy Hives Verified 08/26/20 13:40 cetirizine HCl [From Zyrtec] Allergy Hives Verified 08/26/20 13:40 clarithromycin [From Biaxin] Allergy Hives Verified 08/26/20 13:40 erythromycin base Allergy Hives Verified 08/26/20 13:40 guaifenesin Allergy Hives Verified 08/26/20 13:40 levofloxacin [From Levaquin] Allergy Hives Verified 08/26/20 13:40 meclizine HCl [From Antivert] Allergy Hives Verified 08/26/20 13:40 metoprolol succinate Allergy Hives Verified 08/26/20 13:40 [From Toprol XL] Penicillins Allergy Hives Verified 08/26/20 13:40 prednisone Allergy Hives Verified 08/26/20 13:40 pseudoephedrine HCl Allergy Hives Verified 08/26/20 13:40 [From Sudafed] Sulfa (Sulfonamide Allergy Hives Verified 08/26/20 13:40 Antibiotics) sulfamethoxazole Allergy Hives Verified 08/26/20 13:40 [From Bactrim] trimethoprim [From Bactrim] Allergy Hives Verified 08/26/20 13:40 valsartan [From Diovan] Allergy Hives Verified 08/26/20 13:40 12 HOUR DECONGESTANTS Allergy Hives Uncoded 08/26/20 13:40 DECONGESTANTS Allergy Hives Uncoded 08/26/20 13:40 ONE A DAY MENS VITAMINS Allergy Hives Uncoded 08/26/20 13:40 OTIC EDGE DROPS Allergy Hives Uncoded 08/26/20 13:40 Family History Mother Thyroid disorder Father Asthma Heart disease Hypertension Surgical History EBUS H/O hernia repair H/O umbilical hernia repair History of carpal tunnel surgery Hx laparoscopic cholecystectomy Surgery to straighten nose Social History Smoking Status: Former smoker quit date: 10/04/99 pack-years: 30 how long ago did patient quit smokin second hand exposure: No alcohol intake: current alcohol intake frequency: 0-2 drinks per day substance use type: does not use ROS ROS ED ROS Narrative Past medical history: Reviewed in the computer system Medications: Reviewed Social history: Noncontributory Review of systems: Musculoskeletal: Right thumb laceration Skin: As above Neurological: No weakness or paresthesias Hematologic: No easy bleeding or easy bruising EXAM Physical Exam Narrative Exam Narrative: Physical exam General: Patient does not appear in significant distress . Head: Normocephalic, Atraumatic Neck: No C-spine tenderness Cardiovascular: Normal distal pulses Back: Nontender, Normal Inspection. Extremities: Right thumb shows a volar avulsion about 2 cm in diameter, it does involve the lateral part of the nail but no nail matrix involvement. This is clean but it does not involve any bone. Skin: As above Neurological: Normal strength and sensation Const Vital Signs: 11/29/21 16:02 Temperature 97.2 F L Temperature Source Temporal Pulse Rate 80 Respiratory Rate 16 Blood Pressure 201/90 H Blood Pressure Mean 127 Pulse Ox 100 Oxygen Delivery Method Room Air Procedures Lacerations Thumb laceration: Comment: I used Shur-Clens to clean, Gelfoam was placed over the pad, afterwards I bandaged the laceration, hemostasis was achieved. Patient tolerated procedure well Discharge Plan Triage Chief Complaint: Laceration ED Provider: Modesto Thapa Dx/Rx/DC Orders Clinical Impression: Avulsion of skin of thumb Instructions: ED Laceration: All Closures, ED Skin Avulsion Prescriptions: No Action aspirin [Adult Aspirin Regimen] 81 mg tablet,delayed release (DR/EC) 81 mg PO QDAY RF: 0 albuterol sulfate [ProAir HFA] 90 mcg/actuation HFA aerosol inhaler 2 puff INHALATION Q4H PRN (Reason: shortness of breath) Qty: 1 RF: 6 levothyroxine 137 mcg tablet 137 mcg PO DAILY RF: 0 metoprolol tartrate 100 MG tablet 100 mg PO DAILY RF: 0 omeprazole 40 MG capsule,delayed release(DR/EC) 40 mg PO DAILY RF: 0 montelukast 10 MG tablet 10 mg PO DAILY RF: 0 hydrochlorothiazide 25 MG tablet 25 mg PO DAILY RF: 0 testosterone cypionate 200 MG/ML oil 200 mg IM Q14D RF: 0 albuterol sulfate 2.5 mg /3 mL (0.083 %) solution for nebulization 2.5 mg INHALATION Q4H PRN (Reason: shortness of breath or wheezing) Qty: 180 RF: 6 Symbicort 160-4.5 mcg/actuation HFA aerosol inhaler 2 inh INHALATION Q12H Qty: 1 RF: 6 Primary Care Provider: Shaun Castle Chi Referrals: Shaun Castle Chi, MD [Primary Care Provider] - Disposition Disposition: Home, Self Care
[2021-11-29] MEDS: Diphth,Pertuss(Acell),Tet Vac 0.5 ML Vial IM (16:28)
== END 2021-11-29 18:06 | disposition home or self-care (01) ==
PROVIDERS: Emergency Provider Emergency Medicine; PCP Family Medicine Geriatric Medicine; Visit Provider Emergency Medicine
DX: S61.101A Unspecified open wound of right thumb with damage to nail, initial encounter (principal); J44.9 Chronic obstructive pulmonary disease, unspecified; E11.9 Type 2 diabetes mellitus without complications; I10 Essential (primary) hypertension; E78.5 Hyperlipidemia, unspecified; Z87.891 Personal history of nicotine dependence; X58.XXXA Exposure to other specified factors, initial encounter; Y93.9 Activity, unspecified; Y92.9 Unspecified place or not applicable; M19.90 Unspecified osteoarthritis, unspecified site; Z87.19 Personal history of other diseases of the digestive system; K21.9 Gastro-esophageal reflux disease without esophagitis; E03.9 Hypothyroidism, unspecified; E66.9 Obesity, unspecified; G47.33 Obstructive sleep apnea (adult) (pediatric); Z79.82 Long term (current) use of aspirin; Z79.899 Other long term (current) drug therapy; Z23 Encounter for immunization; Z68.35 Body mass index [BMI] 35.0-35.9, adult
CPT/HCPCS: 90471; 90715; 99282

== ENCOUNTER → 2022-02-26 | Outpatient (CLI) | payer MEDICARE, SELFPAY ==
[2022-02-26 12:13] LABS: Absolute Lymphocyte Count 1.36 X10^3/uL (0.83-4.51); Absolute Neutrophil Count 2.4 X10^3/uL (2.0-7.7); Basophil# 0.04 X10^3/uL; Basophil% 0.9 % (0-1); Eosinophils% 2.3 % (0-5); Hematocrit 38.9 % (40-54); Lymphocyte # 1.36 X10^3/ul (0.83-4.51); Lymphocyte % 31.1 % (19-41); Mean Corp Hgb Conc 33.4 g/dL (32-36); Mean Corpuscular Hgb 29.9 pg (27.0-32.0); Mean Corpuscular Volume 89.4 fL (80-94); Mean Platelet Vol. 9.6 fl (6.2-12.0); Monocyte# 0.45 X10^3/uL; Monocyte% 10.3 % (0-10); NRBC Flagged by Analyzer 0 % (0-5); Neutrophil # 2.41 X10^3/uL (2.7-7.7); Neutrophil % 55.2 % (47-70); Platelet Count 206 K/mm3 (150-450); RBC Distribution Width CV 12.8 % (11.6-14.6); RBC Distribution Width SD 41.9 fl (35.1-43.9); Red Blood Count 4.35 M/mm3 (4.6-6.2); White Blood Count 4.4 K/mm3 (4.4-11.0)
[2022-02-26 12:54] LABS: Vitamin D,25 Hydroxy 36.2 ng/mL
[2022-02-26 13:52] LABS: ALB/GLOB Ratio 1.1 RATIO (0.9-2.4); AST(SGOT) 16 U/L (15-37); Alanine Aminotransfer ALT/SGPT 43 U/L (16-61); Albumin, Serum 3.6 g/dL (3.2-5.0); Alkaline Phosphatase 46 U/L (45-117); Anion Gap 7 (5-15); BUN 16 mg/dL (7-18); BUN/Creat Ratio 13.8 RATIO (10-20); Calcium,Total 9.4 mg/dL (8.5-10.1); Chloride 105 mmol/L (98-107); Creatinine, Serum 1.16 mg/dL (0.70-1.30); EST Glomerular Filtration Rate 67 mL/min (>60); Est Glom Filt Rate - Afr Amer 81 mL/min (>60); Globulin 3.2 g/dL (2.2-4.2); Glucose 140 mg/dL (74-106); Potassium 4.2 mmol/L (3.5-5.1); Protein, Total 6.8 g/dL (6.4-8.2); Sodium Level 141 mmol/L (136-145); Thyroid Stim Hormone (TSH) 0.05 uIU/mL (0.358-3.74); Uric Acid 7.7 mg/dL (3.5-7.2)
== END | disposition home or self-care (01) ==
LOC: POLAB3 11:10
PROVIDERS: PCP Family Medicine Geriatric Medicine; Visit Provider Family Medicine Geriatric Medicine
DX: E11.9 Type 2 diabetes mellitus without complications (principal); E55.9 Vitamin D deficiency, unspecified; I10 Essential (primary) hypertension; M10.9 Gout, unspecified
CPT/HCPCS: 36415; 80053; 82306; 84403; 84443; 84550; 85025

== ENCOUNTER → 2022-06-22 | Outpatient (CLI) | payer MEDICARE, SELFPAY ==
--- NOTE | 2022-06-22 12:35 | RAD_ITS ---
STUDY: X-RAY - RIGHT KNEE REASON FOR EXAM: Male, 66 years old. KNEE PAIN TECHNIQUE: 3 view(s) of the knee. COMPARISON: None. FINDINGS: Normal visualized distal femur. Normal visualized proximal tibia and fibula. Normal proximal tibiofibular articulation. Normal medial femorotibial compartment. Normal lateral femorotibial compartment. There is mild degenerative arthrosis of the patellofemoral articulation. Diffuse soft tissue swelling. RAD/Knee 3 Views IMPRESSION: Mild arthrosis with soft tissue swelling, no demonstrated fracture Electronically Signed: Jluis Stevenson MD at 13:17 EDT ,
== END | disposition home or self-care (01) ==
LOC: RAD 12:34
PROVIDERS: PCP Family Medicine Geriatric Medicine; Referring Provider Family Medicine Geriatric Medicine; Visit Provider Family Medicine Geriatric Medicine
DX: M25.561 Pain in right knee (principal)
CPT/HCPCS: 73560; 73562

== ENCOUNTER 2022-09-08 11:23 | Outpatient (CLI) | payer MEDICARE, SELFPAY ==
[2022-09-08 13:15] LABS: Absolute Lymphocyte Count 1.34 X10^3/uL (0.83-4.51); Basophil# 0.04 X10^3/uL; Basophil% 0.7 % (0-1); Eosinophil# 0.11 X10^3/uL; Eosinophils% 1.8 % (0-5); Hematocrit 41.7 % (40-54); Hemoglobin 13.6 g/dL (13.0-16.5); Lymphocyte # 1.34 X10^3/ul (0.83-4.51); Lymphocyte % 22.5 % (19-41); Mean Corp Hgb Conc 32.6 g/dL (32-36); Mean Corpuscular Hgb 30.2 pg (27.0-32.0); Mean Corpuscular Volume 92.5 fL (80-94); Mean Platelet Vol. 9.6 fl (6.2-12.0); Monocyte# 0.44 X10^3/uL; Monocyte% 7.4 % (0-10); NRBC Flagged by Analyzer 0 % (0-5); Neutrophil % 67.3 % (47-70); Platelet Count 249 K/mm3 (150-450); RBC Distribution Width CV 13.6 % (11.6-14.6); RBC Distribution Width SD 45.5 fl (35.1-43.9); Red Blood Count 4.51 M/mm3 (4.6-6.2)
[2022-09-08 13:28] LABS: Vitamin D,25 Hydroxy 24.3 ng/mL
[2022-09-08 13:50] LABS: ALB/GLOB Ratio 1.1 RATIO (0.9-2.4); AST(SGOT) 15 U/L (15-37); Alanine Aminotransfer ALT/SGPT 40 U/L (16-61); Albumin, Serum 3.9 g/dL (3.2-5.0); Alkaline Phosphatase 64 U/L (45-117); Anion Gap 3 (5-15); BUN 15 mg/dL (7-18); BUN/Creat Ratio 13.2 RATIO (10-20); Calcium,Total 9.8 mg/dL (8.5-10.1); Chloride 101 mmol/L (98-107); Creatinine, Serum 1.14 mg/dL (0.70-1.30); EST Glomerular Filtration Rate 68 mL/min (>60); Est Glom Filt Rate - Afr Amer 82 mL/min (>60); Globulin 3.6 g/dL (2.2-4.2); Glucose 205 mg/dL (74-106); PSA,Total - Annual Screen 0.13 ng/mL (0.00-4.00); Potassium 3.9 mmol/L (3.5-5.1); Protein, Total 7.5 g/dL (6.4-8.2); Sodium Level 138 mmol/L (136-145); Thyroid Stim Hormone (TSH) 7.41 uIU/mL (0.358-3.74)
== END 2022-09-08 23:59 | disposition home or self-care (01) ==
LOC: POLAB3 11:24
PROVIDERS: PCP Family Medicine Geriatric Medicine; Visit Provider Family Medicine Geriatric Medicine
DX: I10 Essential (primary) hypertension (principal); E55.9 Vitamin D deficiency, unspecified; Z12.5 Encounter for screening for malignant neoplasm of prostate
CPT/HCPCS: 36415; 80053; 82306; 84153; 84443; 85025; G0103

== ENCOUNTER → 2022-10-07 | Outpatient (CLI) | payer MEDICARE, SELFPAY ==
[2022-10-07 17:18] LABS: Absolute Lymphocyte Count 1.79 X10^3/uL (0.83-4.51); Absolute Neutrophil Count 4.1 X10^3/uL (2.0-7.7); Basophil# 0.07 X10^3/uL; Basophil% 1.1 % (0-1); Eosinophil# 0.11 X10^3/uL; Eosinophils% 1.7 % (0-5); Hematocrit 42.2 % (40-54); Hemoglobin 13.4 g/dL (13.0-16.5); Lymphocyte # 1.79 X10^3/ul (0.83-4.51); Lymphocyte % 26.9 % (19-41); Mean Corp Hgb Conc 31.8 g/dL (32-36); Mean Corpuscular Volume 94.4 fL (80-94); Mean Platelet Vol. 9.6 fl (6.2-12.0); Monocyte# 0.56 X10^3/uL; Monocyte% 8.4 % (0-10); NRBC Flagged by Analyzer 0 % (0-5); Neutrophil # 4.07 X10^3/uL (2.7-7.7); Neutrophil % 61.1 % (47-70); Platelet Count 245 K/mm3 (150-450); RBC Distribution Width CV 13.2 % (11.6-14.6); RBC Distribution Width SD 45.6 fl (35.1-43.9); Red Blood Count 4.47 M/mm3 (4.6-6.2); White Blood Count 6.7 K/mm3 (4.4-11.0)
[2022-10-07 17:31] LABS: Erythrocyte Sedimentation Rate 16 mm/hr (0-20)
[2022-10-07 17:39] LABS: Anion Gap 6 (5-15); BUN 16 mg/dL (7-18); BUN/Creat Ratio 14.5 RATIO (10-20); CRP 4.19 mg/L (0.0-3.0); Calcium,Total 9.5 mg/dL (8.5-10.1); Chloride 104 mmol/L (98-107); EST Glomerular Filtration Rate 71 mL/min (>60); Est Glom Filt Rate - Afr Amer 86 mL/min (>60); Glucose 207 mg/dL (74-106); Potassium 3.8 mmol/L (3.5-5.1); Sodium Level 139 mmol/L (136-145); Uric Acid 5.9 mg/dL (3.5-7.2)
== END | disposition home or self-care (01) ==
LOC: POLAB3 15:30
PROVIDERS: PCP Family Medicine Geriatric Medicine; Visit Provider Family Medicine Geriatric Medicine
DX: E79.0 Hyperuricemia without signs of inflammatory arthritis and tophaceous disease (principal)
CPT/HCPCS: 36415; 80048; 84550; 85025; 85652; 86140

== ENCOUNTER → 2022-10-16 | Outpatient (CLI) | payer MEDICARE, SELFPAY ==
[2022-10-16 13:41] LABS: Thyroid Stim Hormone (TSH) 7.26 uIU/mL (0.358-3.74)
== END | disposition home or self-care (01) ==
LOC: POLAB3 10:14
PROVIDERS: PCP Family Medicine Geriatric Medicine; Visit Provider Family Medicine Geriatric Medicine
DX: E03.9 Hypothyroidism, unspecified (principal)
CPT/HCPCS: 36415; 84443

== ENCOUNTER → 2022-12-11 | Outpatient (CLI) | payer MEDICARE, SELFPAY ==
[2022-12-11 11:54] LABS: Absolute Lymphocyte Count 1.19 X10^3/uL (0.83-4.51); Absolute Neutrophil Count 3.7 X10^3/uL (2.0-7.7); Basophil# 0.04 X10^3/uL; Basophil% 0.7 % (0-1); Eosinophil# 0.05 X10^3/uL; Eosinophils% 0.9 % (0-5); Hematocrit 41.6 % (40-54); Hemoglobin 13.8 g/dL (13.0-16.5); Lymphocyte # 1.19 X10^3/ul (0.83-4.51); Lymphocyte % 21.9 % (19-41); Mean Corp Hgb Conc 33.2 g/dL (32-36); Mean Corpuscular Hgb 29.7 pg (27.0-32.0); Mean Corpuscular Volume 89.5 fL (80-94); Mean Platelet Vol. 9.4 fl (6.2-12.0); Monocyte# 0.41 X10^3/uL; Monocyte% 7.5 % (0-10); NRBC Flagged by Analyzer 0 % (0-5); Neutrophil # 3.66 X10^3/uL (2.7-7.7); Neutrophil % 67.3 % (47-70); Platelet Count 222 K/mm3 (150-450); RBC Distribution Width CV 13.2 % (11.6-14.6); RBC Distribution Width SD 43.2 fl (35.1-43.9); Red Blood Count 4.65 M/mm3 (4.6-6.2); White Blood Count 5.4 K/mm3 (4.4-11.0)
[2022-12-11 12:05] LABS: Vitamin D,25 Hydroxy 26.9 ng/mL
[2022-12-11 12:14] LABS: ALB/GLOB Ratio 1.1 RATIO (0.9-2.4); AST(SGOT) 19 U/L (15-37); Alanine Aminotransfer ALT/SGPT 46 U/L (16-61); Albumin, Serum 3.6 g/dL (3.2-5.0); Alkaline Phosphatase 57 U/L (45-117); Anion Gap 9 (5-15); BUN 15 mg/dL (7-18); BUN/Creat Ratio 13.5 RATIO (10-20); Calcium,Total 9.4 mg/dL (8.5-10.1); Chloride 102 mmol/L (98-107); Creatinine, Serum 1.11 mg/dL (0.70-1.30); EST Glomerular Filtration Rate 70 mL/min (>60); Est Glom Filt Rate - Afr Amer 85 mL/min (>60); Globulin 3.2 g/dL (2.2-4.2); Glucose 326 mg/dL (74-106); Potassium 3.5 mmol/L (3.5-5.1); Protein, Total 6.8 g/dL (6.4-8.2); Sodium Level 138 mmol/L (136-145); Thyroid Stim Hormone (TSH) 2.16 uIU/mL (0.358-3.74); Uric Acid 6.9 mg/dL (3.5-7.2)
== END | disposition home or self-care (01) ==
LOC: POLAB3 10:00
PROVIDERS: PCP Family Medicine Geriatric Medicine; Visit Provider Family Medicine Geriatric Medicine
DX: E55.9 Vitamin D deficiency, unspecified (principal); E11.65 Type 2 diabetes mellitus with hyperglycemia; I10 Essential (primary) hypertension; M10.9 Gout, unspecified
CPT/HCPCS: 36415; 80053; 82306; 84443; 84550; 85025

== ENCOUNTER → 2022-12-18 | Outpatient (CLI) | payer MEDICARE, SELFPAY ==
--- NOTE | 2022-12-18 10:15 | RAD_ITS ---
STUDY: X-RAY CHEST REASON FOR EXAM: Male, 67 years old. INTRACTABLE HICCUPS TECHNIQUE: PA and lateral views of the chest. COMPARISON: 04/13/2017 FINDINGS: The lungs are clear and expanded. There is no demonstrated pleural abnormality. Normal size heart. Normal mediastinum and milagro. Normal visualized pulmonary arteries. Normal visualized aortic arch and descending thoracic aorta. There are diffuse degenerative changes of the visualized thoracic spine. Normal visualized ribs, clavicles, and shoulders. There is no demonstrated abnormality of the visualized soft tissue structures of the upper abdomen. RAD/Chest PA and Lateral IMPRESSION: No acute pulmonary process Electronically Signed: Jluis Stevenson MD at 10:30 EDT ,
[2022-12-18 13:08] LABS: ALB/GLOB Ratio 1.2 RATIO (0.9-2.4); AST(SGOT) 21 U/L (15-37); Alanine Aminotransfer ALT/SGPT 44 U/L (16-61); Alkaline Phosphatase 65 U/L (45-117); Anion Gap 10 (5-15); BUN 15 mg/dL (7-18); BUN/Creat Ratio 13.3 RATIO (10-20); Calcium,Total 9.9 mg/dL (8.5-10.1); Chloride 98 mmol/L (98-107); Creatinine, Serum 1.13 mg/dL (0.70-1.30); EST Glomerular Filtration Rate 69 mL/min (>60); Est Glom Filt Rate - Afr Amer 83 mL/min (>60); Globulin 3.3 g/dL (2.2-4.2); Glucose 181 mg/dL (74-106); Potassium 3.2 mmol/L (3.5-5.1); Protein, Total 7.3 g/dL (6.4-8.2); Sodium Level 137 mmol/L (136-145)
== END | disposition home or self-care (01) ==
PROVIDERS: PCP Family Medicine Geriatric Medicine; Visit Provider Family Medicine Geriatric Medicine
DX: R06.6 Hiccough (principal)
CPT/HCPCS: 36415; 71046; 80053

== ENCOUNTER → 2023-03-25 | Outpatient (CLI) | payer MEDICARE, SELFPAY ==
[2023-03-25 13:49] LABS: Absolute Lymphocyte Count 1.07 X10^3/uL (0.83-4.51); Absolute Neutrophil Count 4.1 X10^3/uL (2.0-7.7); Basophil# 0.05 X10^3/uL; Basophil% 0.9 % (0-1); Eosinophil# 0.05 X10^3/uL; Eosinophils% 0.9 % (0-5); Hematocrit 41.6 % (40-54); Hemoglobin 13.7 g/dL (13.0-16.5); Lymphocyte # 1.07 X10^3/ul (0.83-4.51); Mean Corp Hgb Conc 32.9 g/dL (32-36); Mean Corpuscular Hgb 30.1 pg (27.0-32.0); Mean Corpuscular Volume 91.4 fL (80-94); Mean Platelet Vol. 9.2 fl (6.2-12.0); Monocyte% 7.1 % (0-10); NRBC Flagged by Analyzer 0 % (0-5); Neutrophil # 4.05 X10^3/uL (2.7-7.7); Neutrophil % 71.7 % (47-70); Platelet Count 213 K/mm3 (150-450); RBC Distribution Width CV 15.2 % (11.6-14.6); RBC Distribution Width SD 50.9 fl (35.1-43.9); Red Blood Count 4.55 M/mm3 (4.6-6.2); White Blood Count 5.6 K/mm3 (4.4-11.0)
[2023-03-25 14:32] LABS: Vitamin D,25 Hydroxy 42.2 ng/mL
[2023-03-25 14:43] LABS: ALB/GLOB Ratio 1.2 RATIO (0.9-2.4); AST(SGOT) 16 U/L (15-37); Alanine Aminotransfer ALT/SGPT 37 U/L (16-61); Albumin, Serum 3.7 g/dL (3.2-5.0); Alkaline Phosphatase 56 U/L (45-117); Anion Gap 6 (5-15); BUN 16 mg/dL (7-18); BUN/Creat Ratio 15.2 RATIO (10-20); Calcium,Total 9.1 mg/dL (8.5-10.1); Chloride 105 mmol/L (98-107); Creatinine, Serum 1.05 mg/dL (0.70-1.30); EST Glomerular Filtration Rate 75 mL/min (>60); Est Glom Filt Rate - Afr Amer 90 mL/min (>60); Globulin 3.1 g/dL (2.2-4.2); Glucose 100 mg/dL (74-106); Potassium 3.7 mmol/L (3.5-5.1); Protein, Total 6.8 g/dL (6.4-8.2); Sodium Level 139 mmol/L (136-145); Thyroid Stim Hormone (TSH) 1.09 uIU/mL (0.358-3.74); Uric Acid 5.8 mg/dL (3.5-7.2)
== END | disposition home or self-care (01) ==
LOC: LAB 12:39
PROVIDERS: PCP Family Medicine Geriatric Medicine; Referring Provider Family Medicine Geriatric Medicine; Visit Provider Family Medicine Geriatric Medicine
DX: E11.65 Type 2 diabetes mellitus with hyperglycemia (principal); I10 Essential (primary) hypertension; M10.9 Gout, unspecified; E55.9 Vitamin D deficiency, unspecified
CPT/HCPCS: 36415; 80053; 82306; 84443; 84550; 85025

== ENCOUNTER → 2023-07-14 | Outpatient (CLI) | payer MEDICARE, SELFPAY ==
[2023-07-14 11:05] LABS: Absolute Lymphocyte Count 1.21 X10^3/uL (0.83-4.51); Absolute Neutrophil Count 3.1 X10^3/uL (2.0-7.7); Basophil# 0.05 X10^3/uL; Eosinophil# 0.08 X10^3/uL; Eosinophils% 1.7 % (0-5); Hematocrit 42.7 % (40-54); Hemoglobin 13.4 g/dL (13.0-16.5); Lymphocyte # 1.21 X10^3/ul (0.83-4.51); Mean Corp Hgb Conc 31.4 g/dL (32-36); Mean Corpuscular Hgb 29.5 pg (27.0-32.0); Mean Corpuscular Volume 93.8 fL (80-94); Mean Platelet Vol. 9.5 fl (6.2-12.0); Monocyte# 0.36 X10^3/uL; Monocyte% 7.4 % (0-10); NRBC Flagged by Analyzer 0 % (0-5); Neutrophil # 3.13 X10^3/uL (2.7-7.7); Neutrophil % 64.7 % (47-70); Platelet Count 239 K/mm3 (150-450); RBC Distribution Width CV 13.3 % (11.6-14.6); RBC Distribution Width SD 45.7 fl (35.1-43.9); Red Blood Count 4.55 M/mm3 (4.6-6.2); Vitamin D,25 Hydroxy 32.2 ng/mL; White Blood Count 4.8 K/mm3 (4.4-11.0)
[2023-07-14 11:23] LABS: ALB/GLOB Ratio 1.2 RATIO (0.9-2.4); AST(SGOT) 8 U/L (15-37); Alanine Aminotransfer ALT/SGPT 33 U/L (16-61); Albumin, Serum 3.7 g/dL (3.2-5.0); Alkaline Phosphatase 52 U/L (45-117); Anion Gap 6 (5-15); BUN 15 mg/dL (7-18); BUN/Creat Ratio 13.6 RATIO (10-20); Calcium,Total 9.6 mg/dL (8.5-10.1); Chloride 105 mmol/L (98-107); EST Glomerular Filtration Rate 71 mL/min (>60); Est Glom Filt Rate - Afr Amer 86 mL/min (>60); Glucose 149 mg/dL (74-106); Potassium 4.1 mmol/L (3.5-5.1); Protein, Total 6.7 g/dL (6.4-8.2); Sodium Level 141 mmol/L (136-145); Thyroid Stim Hormone (TSH) 1.23 uIU/mL (0.358-3.74); Uric Acid 4.7 mg/dL (3.5-7.2)
== END | disposition home or self-care (01) ==
PROVIDERS: PCP Family Medicine Geriatric Medicine; Visit Provider Family Medicine Geriatric Medicine
DX: E11.65 Type 2 diabetes mellitus with hyperglycemia (principal); I10 Essential (primary) hypertension; M10.9 Gout, unspecified; E55.9 Vitamin D deficiency, unspecified
CPT/HCPCS: 36415; 80053; 82306; 84443; 84550; 85025

== ENCOUNTER → 2023-09-23 | Outpatient (CLI) | payer MEDICARE, SELFPAY ==
[2023-09-23 13:31] LABS: Absolute Neutrophil Count 3.8 X10^3/uL (2.0-7.7); Basophil# 0.06 X10^3/uL; Eosinophil# 0.08 X10^3/uL; Eosinophils% 1.4 % (0-5); Hematocrit 38.2 % (40-54); Hemoglobin 12.7 g/dL (13.0-16.5); Lymphocyte % 22.7 % (19-41); Mean Corp Hgb Conc 33.2 g/dL (32-36); Mean Corpuscular Hgb 30.2 pg (27.0-32.0); Mean Platelet Vol. 9.1 fl (6.2-12.0); Monocyte# 0.43 X10^3/uL; Monocyte% 7.5 % (0-10); NRBC Flagged by Analyzer 0 % (0-5); Neutrophil # 3.84 X10^3/uL (2.7-7.7); Neutrophil % 67.1 % (47-70); Platelet Count 249 K/mm3 (150-450); RBC Distribution Width CV 14.1 % (11.6-14.6); RBC Distribution Width SD 46.6 fl (35.1-43.9); White Blood Count 5.7 K/mm3 (4.4-11.0)
[2023-09-23 13:56] LABS: Vitamin D,25 Hydroxy 32.6 ng/mL
[2023-09-23 14:06] LABS: ALB/GLOB Ratio 1.2 RATIO (0.9-2.4); AST(SGOT) 15 U/L (15-37); Alanine Aminotransfer ALT/SGPT 35 U/L (16-61); Albumin, Serum 3.7 g/dL (3.2-5.0); Alkaline Phosphatase 56 U/L (45-117); Anion Gap 8 (5-15); BUN 13 mg/dL (7-18); BUN/Creat Ratio 11.3 RATIO (10-20); Calcium,Total 8.8 mg/dL (8.5-10.1); Chloride 106 mmol/L (98-107); Creatinine, Serum 1.15 mg/dL (0.70-1.30); EST Glomerular Filtration Rate 67 mL/min (>60); Est Glom Filt Rate - Afr Amer 81 mL/min (>60); Globulin 3.1 g/dL (2.2-4.2); Glucose 140 mg/dL (74-106); Potassium 3.9 mmol/L (3.5-5.1); Protein, Total 6.8 g/dL (6.4-8.2); Sodium Level 140 mmol/L (136-145); Thyroid Stim Hormone (TSH) 3.73 uIU/mL (0.358-3.74); Uric Acid 3.3 mg/dL (3.5-7.2)
== END | disposition home or self-care (01) ==
LOC: LAB 12:29
PROVIDERS: PCP Family Medicine Geriatric Medicine; Referring Provider Family Medicine Geriatric Medicine; Visit Provider Family Medicine Geriatric Medicine
DX: I10 Essential (primary) hypertension (principal); E11.65 Type 2 diabetes mellitus with hyperglycemia; E55.9 Vitamin D deficiency, unspecified; M10.9 Gout, unspecified
CPT/HCPCS: 36415; 80053; 82306; 84443; 84550; 85025

== ENCOUNTER → 2023-12-14 | Outpatient (CLI) | payer MEDICARE, SELFPAY ==
[2023-12-14 15:38] LABS: Absolute Lymphocyte Count 1.36 X10^3/uL (0.83-4.51); Absolute Neutrophil Count 3.3 X10^3/uL (2.0-7.7); Basophil# 0.04 X10^3/uL; Basophil% 0.7 % (0-1); Eosinophil# 0.16 X10^3/uL; Eosinophils% 2.9 % (0-5); Hematocrit 37.1 % (40-54); Hemoglobin 12.1 g/dL (13.0-16.5); Lymphocyte # 1.36 X10^3/ul (0.83-4.51); Lymphocyte % 24.8 % (19-41); Mean Corp Hgb Conc 32.6 g/dL (32-36); Mean Corpuscular Hgb 30.4 pg (27.0-32.0); Mean Corpuscular Volume 93.2 fL (80-94); Mean Platelet Vol. 9.6 fl (6.2-12.0); Monocyte# 0.61 X10^3/uL; Monocyte% 11.1 % (0-10); NRBC Flagged by Analyzer 0 % (0-5); Neutrophil # 3.29 X10^3/uL (2.7-7.7); Neutrophil % 60.1 % (47-70); Platelet Count 222 K/mm3 (150-450); RBC Distribution Width CV 13.7 % (11.6-14.6); RBC Distribution Width SD 46.9 fl (35.1-43.9); Red Blood Count 3.98 M/mm3 (4.6-6.2); White Blood Count 5.5 K/mm3 (4.4-11.0)
[2023-12-14 16:06] LABS: Vitamin D,25 Hydroxy 32.8 ng/mL
[2023-12-14 22:52] LABS: ALB/GLOB Ratio 1.2 RATIO (0.9-2.4); AST(SGOT) 16 U/L (15-37); Alanine Aminotransfer ALT/SGPT 46 U/L (16-61); Albumin, Serum 3.6 g/dL (3.2-5.0); Alkaline Phosphatase 58 U/L (45-117); Anion Gap 6 (5-15); BUN 19 mg/dL (7-18); BUN/Creat Ratio 17.3 RATIO (10-20); Chloride 106 mmol/L (98-107); EST Glomerular Filtration Rate 71 mL/min (>60); Est Glom Filt Rate - Afr Amer 85 mL/min (>60); Globulin 2.9 g/dL (2.2-4.2); Glucose 126 mg/dL (74-106); PSA,Total - Annual Screen 0.18 ng/mL (0.00-4.00); Potassium 3.8 mmol/L (3.5-5.1); Protein, Total 6.5 g/dL (6.4-8.2); Sodium Level 139 mmol/L (136-145); Uric Acid 3.9 mg/dL (3.5-7.2)
--- OUTSIDE RECORDS SUMMARY | 2023-12-15 02:11 | XMS RPT_ITS | CCD ---
Author Name Unknown Address [address] [place] [address] Organization [facility] Care Team Providers Care Lead Esthetician Name Role Phone Josey Santana Unavailable Unavailable Edna Monge CNP Unavailable Josey Santana Unavailable Unavailable Yensho EQUIPMENT OR MACHINERY CLEANER, Bernice A Unavailable Unavailab le Josey Santana Unavailable Unavailable Yensho EQUIPMENT OR MACHINERY CLEANER, Bernice A Unavailable Unavailab le York, Mariia L Unavailable Unavailable York, Mariia L Unavailable Unavailable Ayers EQUIPMENT OR MACHINERY CLEANER, Mariia Sandra Unavailable Unavaila ble Ayers EQUIPMENT OR MACHINERY CLEANER, Mariia Sandra Unavailable Unavaila ble [employer] Unavailable LinkLogic Unavailable LinkLogic Unavailable Yensho EQUIPMENT OR MACHINERY CLEANER, Bernice A Unavailable Unavailab le York, Mariia L Unavailable Unavailable Ayers EQUIPMENT OR MACHINERY CLEANER, Mariia Sandra Unavailable Unavaila ble [employer] Unavailable MaxYarye Anna Unavailable Unavailable Yensho EQUIPMENT OR MACHINERY CLEANER, Bernice A Unavailable Unavailab le WASSERMAN, SE Unavailable Unavailable PROVIDER, UNKNOWN Unavailable Unavailable Tin, Shaun Chi Unavailable Unavailable WASSERMAN, SE Unavailable Unavailable PROVIDER, UNKNOWN Unavailable Unavailable Tin, Shaun Chi Unavailable Unavailable Yensho EQUIPMENT OR MACHINERY CLEANER, Bernice A Unavailable Unavailab le Yensho EQUIPMENT OR MACHINERY CLEANER, Bernice A Unavailable Unavailab le Yensho EQUIPMENT OR MACHINERY CLEANER, Bernice A Unavailable Unavailab le Yensho EQUIPMENT OR MACHINERY CLEANER, Bernice A Unavailable Unavailab le [employer] Unavailable Ayers EQUIPMENT OR MACHINERY CLEANER, Mariia Sandra Unavailable Unavaila ble Ayers EQUIPMENT OR MACHINERY CLEANER, Mariia Sandra Unavailable Unavaila ble Roberto ARORA, Walker Castillo Unavailable Edna Monge CNP Unavailable [phone] Bernice Pruitt LPN Unavailable Unavailab le Allergies Allergy Classification Reported Allergen(s) Allergy Type Date of Onset Reaction(s) Facility (20 sources) cephalexin drug allergy 7 [facility] Work Phone: (20 sources) clarithromycin drug allergy 7 [facility] Work Phone: (20 sources) erythromycin drug allergy 1 [facility] Work Phone: (20 sources) guaiFENesin drug allergy 1 [facility] Work Phone: (20 sources) levoFLOXacin drug allergy 7 [facility] Work Phone: (20 sources) meclizine drug allergy 1 [facility] Work Phone: (20 sources) metoprolol drug allergy 7 [facility] Work Phone: (20 sources) penicillin drug allergy 1 [facility] Work Phone: (20 sources) Penicillins (Antibiotic) drug allergy 1 [facility] Work Phone: (20 sources) predniSONE drug allergy 7 [facility] Work Phone: (20 sources) pseudoephedrine drug allergy 1 [facility] Work Phone: (20 sources) sulfamethoxazole drug allergy 1 [facility] Work Phone: (20 sources) Sulfonamides (Antibiotic) drug allergy 1 [facility] Work Phone: (20 sources) trimethoprim; Translations: [TRIMETHOPRIM] food allergy 1 [facility] Work Phone: (20 sources) valsartan drug allergy 1 [facility] Phone: (20 sources) BIOXIN; Translations: [BIOXIN] allergy to substance 1 [facility] Work Phone: (20 sources) ALL DAY ALLERGY drug allergy 7 [facility] Phone: (20 sources) DECONGESTANTS drug allergy 1 [facility] Work Phone: (20 sources) ONE A DAY [facility] VITAMIN drug allergy 1 [facility] Phone: Medications Completed/Discontinued Medications Medication Drug Class(es) Dates Sig (Normalized) Sig (Original) 200 actuat albuterol 0.09 mg/actuat metered dose inhaler (20 sources) beta2-Adrenergic Agonist Start: 07-07-2017 take 2 puff(s) by inhalation every four to six hours as needed PROAIR HFA 108 (90 Base) MCG/ACT AERS 2 puffs INH q 4-6 hours PRN SOB ALBUTEROL SULFATE [id number] Micheal Agrawal DO Problems Active Problems Problem Classification Problem Date Documented Date Episodic/Chronic Asthma (2 sources) Unspecified asthma, uncomplicated; Translations: [Unspecified asthma, uncomplicated] Onset: 05-21-2017 Chronic Chronic obstructive pulmonary disease and bronchiectasis (3 sources) Chronic obstructive lung disease; Translations: [Chronic obstructive pulmonary disease, unspecified] Onset: 07-07-2017 07-07-2017 Chronic Disorders of lipid metabolism (20 sources) Hypertriglyceridemia; Translations: [Hyperlipidemia, unspecified] Onset: 08-03-2012 08-03-2012 Chronic Diverticulosis and diverticulitis (20 sources) Diverticular disease of colon; Translations: [Diverticulosis of intestine, part unspecified, without perforation or abscess without bleeding] Onset: 11-30-2011 11-30-2011 Chronic Esophageal disorders (20 sources) Gastroesophageal reflux disease; Translations: [Gastro-esophageal reflux disease without esophagitis] Onset: 11-09-2011 11-09-2011 Chronic Essential hypertension (20 sources) Hypertensive disorder; Translations: [Essential (primary) hypertension] Onset: 08-03-2012 08-03-2012 Chronic Osteoarthritis (2 sources) Unspecified osteoarthritis, unspecified site; Translations: [Unspecified osteoarthritis, unspecified site] Onset: 05-21-2017 Chronic Other endocrine disorders (2 sources) Testicular hypofunction; Translations: [Testicular hypofunction] Onset: 05-21-2017 Chronic Other nutritional; endocrine; and metabolic disorders (5 sources) Obesity; Translations: [Obesity, unspecified] Onset: 05-21-2017 07-07-2017 Chronic Thyroid disorders (2 sources) Hypothyroidism, unspecified; Translations: [Hypothyroidism, unspecified] Onset: 05-21-2017 Chronic Unclassified (20 sources) Obstructive sleep apnea of adult; Translations: [Body mass index (BMI) 38.0-38.9, adult] Onset: 03-25-2017 03-26-2017 Chronic Unclassified (2 sources) Sleep apnea, unspecified; Translations: [Sleep apnea, unspecified] Onset: 05-21-2017 Past or Other Problems Problem Classification Problem Date Documented Da te Episodic/Chronic Abdominal hernia (20 sources) Umbilical hernia; Translations: [Hiatal hernia] Onset: 09-30-2011 09-30-2011 Episodic Abdominal pain (20 sources) Epigastric pain; Translations: [Epigastric pain] Onset: 11-09-2011 11-09-2011 Episodic Allergic reactions (8 sources) Allergy status to other drugs, medicaments and biological substances status; Translations: [Allergy status to other antibiotic agents status] Onset: 05-21-2017 Episodic Biliary tract disease (20 sources) Chronic cholecystitis with calculus; Translations: [Biliary calculus] Onset: 09-30-2011 11-09-2011 Episodic Gastrointestinal hemorrhage (20 sources) Hematochezia; Translations: [Melena] Onset: 11-09-2011 11-09-2011 Episodic Hemorrhoids (20 sources) External hemorrhoids; Translations: [Residual hemorrhoidal skin tags] Onset: 11-30-2011 11-30-2011 Episodic Lymphadenitis (20 sources) Lymphadenopathy; Translations: [Localized enlarged lymph nodes] Onset: 04-23-2017 04-23-2017 Episodic Medical examination/evaluation (2 sources) Encounter for other preprocedural examination; Translations: [Encounter for other preprocedural examination] Onset: 05-14-2017 Episodic Nonspecific chest pain (5 sources) Tight chest; Translations: [Other chest pain] Onset: 05-14-2017 07-07-2017 Episodic Other and unspecified benign neoplasm (20 sources) Adenomatous polyp of colon ; Translations: [Personal history of colonic polyps] Onset: 11-30-2011 11-30-2011 Episodic Other lower respiratory disease (18 sources) Dyspnea; Translations: [Dyspnea, unspecified] Onset: 04-23-2017 04-23-2017 Episodic Other skin disorders (20 sources) Eruption; Translations: [Granulomatosis] Onset: 09-30-2011 09-30-2011 Episodic Other skin disorders (1 source) Granulomatosis; Translations: [Granulomatous disorder of the skin and subcutaneous tissue, unspecified] Onset: 07-07-2017 07-07-2017 Episodic Screening or history of mental health and substance abuse (2 sources) Personal history of nicotine dependence; Translations: [Personal history of nicotine dependence] Onset: 05-21-2017 Episodic Unclassified (20 sources) Tomography - chest abnormal; Translations: [Acquired absence of other specified parts of digestive tract] Onset: 03-25-2017 03-25-2017 Episodic Results Test Name Value Interpretation Reference Range Facil ity Vital Signs Date Time Vital Sign Value Performing Clinician Facility 07-07-2017 05:52-0400 BMI (Body Mass Index) 37.52 kg/m2 Bernice Pruitt LPN [facility] Phone: 07-07-2017 05:52-0400 Body Temperature 97.6 [degF] Bernice Raoho EQUIPMENT OR MACHINERY CLEANER [facility] Work Phone: 07-07-2017 05:52-0400 BP Diastolic 80 mm[Hg] Bernice Pruitt LPN [facility] Work Phone: 07-07-2017 05:52-0400 BP Systolic 175 mm[Hg] Bernice Mariaho EQUIPMENT OR MACHINERY CLEANER [facility] Work Phone: 07-07-2017 05:52-0400 Height 168.91 cm Bernice Pruitt LPN [facility] Work Phone: 07-07-2017 05:52-0400 Pulse (Heart Rate) 62 /min Bernice Yensho EQUIPMENT OR MACHINERY CLEANER [facility] Work Phone: 07-07-2017 05:52-0400 Respiratory Rate 18 /min Bernice Yensho EQUIPMENT OR MACHINERY CLEANER [facility] Work Phone: 07-07-2017 05:52-0400 Weight 107.05 kg Bernice Yensho EQUIPMENT OR MACHINERY CLEANER [facility] Work Phone: 05-26-2017 06:02-0400 BMI (Body Mass Index) 35.77 kg/m2 Bernice Yensho EQUIPMENT OR MACHINERY CLEANER [facility] Work Phone: 05-26-2017 06:02-0400 Body Temperature 97.4 [degF] Bernice Yensho EQUIPMENT OR MACHINERY CLEANER [facility] Work Phone: 05-26-2017 06:02-0400 BP Diastolic 87 mm[Hg] Bernice Yensho EQUIPMENT OR MACHINERY CLEANER [facility] Work Phone: 05-26-2017 06:02-0400 BP Systolic 167 mm[Hg] Bernice Yensho EQUIPMENT OR MACHINERY CLEANER [facility] Work Phone: 05-26-2017 06:02-0400 Height 168.91 cm Bernice Yensho EQUIPMENT OR MACHINERY CLEANER [facility] Work Phone: 05-26-2017 06:02-0400 Pulse (Heart Rate) 80 /min Bernice Yensho EQUIPMENT OR MACHINERY CLEANER [facility] Work Phone: 05-26-2017 06:02-0400 Respiratory Rate 18 /min Bernice Yensho EQUIPMENT OR MACHINERY CLEANER [facility] Work Phone: 05-26-2017 06:02-0400 Weight 102.06 kg Bernice Yensho EQUIPMENT OR MACHINERY CLEANER [facility] Work Phone: 05-03-2017 14:27-0400 BMI (Body Mass Index) 35.45 kg/m2 Walker Mejia MD [facility] Work Phone: 05-03-2017 14:27-0400 Body Temperature 98.1 [degF] Walker Mejia MD [facility] Work Phone: 05-03-2017 14:27-0400 BP Diastolic 72 mm[Hg] Walker Mejia MD [facility] Work Phone: 05-03-2017 14:27-0400 BP Systolic 114 mm[Hg] Walker Mejia MD [facility] Work Phone: 05-03-2017 14:27-0400 Height 168.91 cm Walker Mejia MD [facility] Work Phone: 05-03-2017 14:27-0400 Pulse (Heart Rate) 56 /min Walker Mejia MD [facility] Work Phone: 05-03-2017 14:27-0400 Respiratory Rate 18 /min Walker Mejia MD [facility] Work Phone: 05-03-2017 14:27-0400 Weight 101.15 kg Walker Mejia MD [facility] Work Phone: 04-23-2017 12:35-0400 BMI (Body Mass Index) 36.24 kg/m2 Mariia Carvalho [facility] Work Phone: 04-23-2017 12:35-0400 Body Temperature 98 [degF] Mariia York [facility] Work Phone: 04-23-2017 12:35-0400 BP Diastolic 76 mm[Hg] Mariia Deven [facility] Work Phone: 04-23-2017 12:35-0400 BP Systolic 151 mm[Hg] Mariia Deven [facility] Work Phone: 04-23-2017 12:35-0400 Height 168.91 cm Mariia Deven [facility] Work Phone: 04-23-2017 12:35-0400 Pulse (Heart Rate) 63 /min [facility] Work Phone: 04-23-2017 12:35-0400 Respiratory Rate 18 /min Mariia Deven [facility] Work Phone: 04-23-2017 12:35-0400 Weight 103.42 kg Mariia Deven [facility] Work Phone: 03-25-2017 11:35-0400 BMI (Body Mass Index) 34.02 kg/m2 Bernice Yensho EQUIPMENT OR MACHINERY CLEANER [facility] Work Phone: 03-25-2017 11:35-0400 Body Temperature 96.7 [degF] Bernice Yensho EQUIPMENT OR MACHINERY CLEANER [facility] Work Phone: 03-25-2017 11:35-0400 BP Diastolic 69 mm[Hg] Bernice Yensho EQUIPMENT OR MACHINERY CLEANER [facility] Work Phone: 03-25-2017 11:35-0400 BP Systolic 149 mm[Hg] Bernice Yensho EQUIPMENT OR MACHINERY CLEANER [facility] Work Phone: 03-25-2017 11:35-0400 Height 168.91 cm Bernice Yensho EQUIPMENT OR MACHINERY CLEANER [facility] Work Phone: 03-25-2017 11:35-0400 Pulse (Heart Rate) 55 /min Bernice Yensho EQUIPMENT OR MACHINERY CLEANER [facility] Work Phone: 03-25-2017 11:35-0400 Pulse Oximetry 97 % Bernice Yensho EQUIPMENT OR MACHINERY CLEANER [facility] Work Phone: 03-25-2017 11:35-0400 Respiratory Rate 20 /min Bernice Yensho EQUIPMENT OR MACHINERY CLEANER [facility] Work Phone: 03-25-2017 11:35-0400 Weight 97.07 kg Bernice Yensho EQUIPMENT OR MACHINERY CLEANER [facility] Work Phone: 02-14-2013 16:21-0400 BMI (Body Mass Index) 33 kg/m2 Bernice Raoho EQUIPMENT OR MACHINERY CLEANER [facility] Work Phone: 02-14-2013 16:21-0400 BP Diastolic 70 mm[Hg] Bernice Raoho EQUIPMENT OR MACHINERY CLEANER [facility] Work Phone: 02-14-2013 16:21-0400 BP Systolic 110 mm[Hg] Bernice Mairaho EQUIPMENT OR MACHINERY CLEANER [facility] Work Phone: 02-14-2013 16:21-0400 Pulse (Heart Rate) 48 /min Bernice Raoho EQUIPMENT OR MACHINERY CLEANER [facility] Work Phone: 02-14-2013 16:21-0400 Respiratory Rate 20 /min Bernice Raoho EQUIPMENT OR MACHINERY CLEANER [facility] Work Phone: 02-14-2013 16:21-0400 Weight 93.8 kg Bernice Raoho EQUIPMENT OR MACHINERY CLEANER [facility] Work Phone: 11-30-2011 16:00-0500 Body Temperature 97.6 [degF] Bernice Raoho EQUIPMENT OR MACHINERY CLEANER [facility] Work Phone: 11-30-2011 16:00-0500 BSA (Body Surface Area) 2.15 m2 Bernice Raoho EQUIPMENT OR MACHINERY CLEANER [facility] Work Phone: 09-30-2011 15:37-0500 Height 168.91 cm Bernice Maiarho EQUIPMENT OR MACHINERY CLEANER [facility] Work Phone: Encounters Encounter Date Encounter Type Care Provider Facility Start: 05-21-2017 Ambulatory SE WASSERMAN [facility] Start: 05-14-2017 Ambulatory SE WASSERMAN [facility] Procedures Date Procedure Procedure Detail Performing Clinician Start: 07-07-2017 End: 07-07-2017 Dietary management education, guidance, and counseling Bernice Pruitt LPN Start: 05-26-2017 End: 06-08-2017 Bacteria identified in Sputum by Culture Edna Monge ENERGY CONSERVATION ENGINEER Work Phone: Start: 05-26-2017 End: 06-08-2017 DMJohn Walker DELINQUENCY PREVENTION OFFICER Work Phone: Start: 05-26-2017 End: 06-08-2017 Follow Up Appt 1 month Edna ellsworth ENERGY CONSERVATION ENGINEER Work Phone: Start: 05-26-2017 End: 06-08-2017 Pulmonary Function Test - complete Edna Monge ENERGY CONSERVATION ENGINEER Work Phone: Start: 05-26-2017 End: 06-08-2017 Bacteria sputum culture Edna marin ENERGY CONSERVATION ENGINEER Work Phone: Start: 05-26-2017 End: 06-08-2017 DMB Edna Walker DELINQUENCY PREVENTION OFFICER Work Phone: Start: 05-26-2017 End: 06-08-2017 Follow Up Appt 1 month Edna ellsworth ENERGY CONSERVATION ENGINEER Work Phone: Start: 05-26-2017 End: 06-08-2017 Pulmonary Function Test - complete Edna Monge ENERGY CONSERVATION ENGINEER Work Phone: Start: 05-04-2017 End: 05-05-2017 Referral to physician Edna Monge CNP Work Phone: Start: 05-04-2017 End: 06-11-2017 Referral to physician Edna Monge ENERGY CONSERVATION ENGINEER Work Phone: Start: 05-03-2017 End: 05-03-2017 Dietary management education, guidance, and counseling Walker Mejia MD Start: 04-23-2017 End: 04-29-2017 KAVITA Walker DELINQUENCY PREVENTION OFFICER Work Phone: Start: 04-23-2017 End: 04-29-2017 Demo&/eval of pt utiliz aersl gen/neb/inhlr/ip Edna Monge ENERGY CONSERVATION ENGINEER Work Phone: Start: 04-23-2017 End: 04-29-2017 Follow Up Appt 2 months Edna S Leroy er ENERGY CONSERVATION ENGINEER Work Phone: Start: 04-23-2017 End: 04-24-2017 Referral to surgeon Edna Walker DELINQUENCY PREVENTION OFFICER Work Phone: Start: 04-23-2017 End: 04-29-2017 BWA Edna Walker DELINQUENCY PREVENTION OFFICER Work Phone: Start: 04-23-2017 End: 04-23-2017 Evaluate pt use of inhaler Edna dickens ENERGY CONSERVATION ENGINEER Work Phone: Start: 04-23-2017 End: 04-29-2017 Follow Up Appt 2 months Edna S Leroy er ENERGY CONSERVATION ENGINEER Work Phone: Start: 04-23-2017 End: 05-31-2017 Referral to surgeon Edna Walker DELINQUENCY PREVENTION OFFICER Work Phone: Start: 03-25-2017 End: 07-05-2017 *CBC with Differential [facility] Work Phone: Start: 03-25-2017 End: 07-05-2017 aPTT in Platelet poor plasma by Coagulation assay [facility] Work Phone: Start: 03-25-2017 End: 07-07-2017 [facility] ebus dx/tx intervention perph les [place] [facility] Work Phone: Start: 03-25-2017 End: 07-07-2017 DMB [facility] Work Phone: Start: 03-25-2017 End: 07-07-2017 Follow Up Appt 1 month [facility] Work Phone: Start: 03-25-2017 End: 07-05-2017 INR in Platelet poor plasma by Coagulation assay [facility] Work Phone: Start: 02-14-2013 End: 02-14-2013 CASHIER Checo Jaimes MD Start: 02-14-2013 End: 02-14-2013 Follow Up Appt Other Checo Jaimes MD Start: 02-14-2013 End: 02-14-2013 CASHIER Checo Jaimes MD Start: 02-14-2013 End: 02-14-2013 Follow Up Appt Other Checo Jaimes MD Start: 08-11-2012 End: 02-14-2013 Follow Up Appt 6 months Anna Yanez Start: 08-11-2012 End: 02-14-2013 Lipid 1996 panel - Serum or Plasma Checo Jaimes MD Start: 08-11-2012 End: 02-14-2013 Follow Up Appt 6 months Anna Yanez Start: 08-11-2012 End: 02-14-2013 Lipid panel [AGGREGATE] Anna Yanez Plan of Treatment Date Care Activity Detail Author Start: 10-12-2017 End: 10-12-2017 Appointment Appointment [facility] Phone: Start: 07-07-2017 End: 07-07-2017 DMB DMB [facility] Phone: Start: 07-07-2017 End: 07-07-2017 Follow Up Appt 3 months Follow Up Appt 3 months [facility] Phone: Start: 07-07-2017 End: 07-07-2017 Appointment Appointment [facility] Phone: Start: 06-30-2017 End: 06-30-2017 Appointment Appointment [facility] Phone: Start: 05-26-2017 End: 06-08-2017 Bacteria sputum culture *Sputum Culture [facility] Phone: Start: 05-26-2017 End: 06-08-2017 DMB DMB [facility] Phone: Start: 05-26-2017 End: 06-08-2017 Follow Up Appt 1 month Follow Up Appt 1 month [facility] Work Phone: Start: 05-26-2017 End: 06-08-2017 Pulmonary Function Test - complete Pulmonary Function Test - complete [facility] Work Phone: Start: 05-26-2017 End: 05-26-2017 Appointment Appointment [facility] Work Phone: Start: 05-26-2017 End: 06-08-2017 Bacteria sputum culture *Sputum Culture [facility] Work Phone: Start: 05-26-2017 End: 06-08-2017 DMB DMB [facility] Work Phone: Start: 05-26-2017 End: 06-08-2017 Follow Up Appt 1 month Follow Up Appt 1 month [facility] Work Phone: Start: 05-26-2017 End: 06-08-2017 Pulmonary Function Test - complete Pulmonary Function Test - complete [facility] Work Phone: Start: 05-04-2017 End: 05-05-2017 Other Referral Other Referral [facility], [address] [place] [address], [id number] [facility] Work Phone: Start: 05-04-2017 End: 05-05-2017 Other Referral [facility], [address] [place] [address], [address], [address] [facility] Work Phone: Start: 04-28-2017 End: 04-28-2017 Appointment Appointment [facility] Work Phone: Start: 04-23-2017 End: 04-29-2017 [place] [facility] Work Phone: Start: 04-23-2017 End: 04-29-2017 Follow Up Appt 2 months Follow Up Appt 2 months [facility] Work Phone: Start: 04-23-2017 End: 05-10-2017 Oncology Referral Oncology Referral Praveen Gallo MD, [place] [facility] [facility], [address], [place], [address] [facility] Work Phone: Start: 04-23-2017 End: 04-23-2017 Surgery Referral Surgery Referral Walker Mejia MD, [facility], [address] [facility], [address], [place], [address] [facility] Work Phone: Start: 04-23-2017 End: 04-23-2017 Appointment Appointment [facility] Work Phone: Start: 04-23-2017 End: 04-29-2017 BWA BWA [facility] Work Phone: Start: 04-23-2017 End: 04-29-2017 Follow Up Appt 2 months Follow Up Appt 2 months [facility] Work Phone: Start: 04-23-2017 End: 05-10-2017 Oncology Referral Oncology Referral Praveen Gallo MD, [place] [facility], [address], [place], [address] [facility] Work Phone: Start: 04-23-2017 End: 05-10-2017 Surgery Referral Surgery Referral Walker Mejia MD, [facility], [address] [place] [address], [address], [place], [address] [facility] Work Phone: Start: 03-25-2017 End: 07-05-2017 *CBC with Differential *CBC with Differential [facility] Work Phone: Start: 03-25-2017 End: 07-05-2017 aPTT *PTT-Partial Thromboplastin Time [facility] Work Phone: Start: 03-25-2017 End: 07-05-2017 [facility]tx [facility] perph les Bronchoscopy, (EBUS) [facility] Phone: Start: 03-25-2017 End: 07-07-2017 DMB DMB [facility] Phone: Start: 03-25-2017 End: 07-07-2017 Follow Up Appt 1 month Follow Up Appt 1 month [facility] Phone: Start: 03-25-2017 End: 07-05-2017 INR Coag RelTime (PPP) *PT/INR [facility] Phone: Start: 03-25-2017 End: 03-25-2017 Appointment Appointment [facility] Phone: Start: 03-25-2017 End: 03-25-2017 *CBC with Differential *CBC with Differential [facility] Phone: Start: 03-25-2017 End: 03-25-2017 aPTT *PTT-Partial Thromboplastin Time [facility] Phone: Start: 03-25-2017 End: 03-25-2017 aPTT Coag time (PPP) *PTT-Partial Thromboplastin Time [facility] Phone: Start: 03-25-2017 End: 03-25-2017 Bronchoscopy, (EBUS) Bronchoscopy, (EBUS) [facility] Phone: Start: 03-25-2017 End: 03-25-2017 Coagulation factor induced.INR assay in platelet poor plasma *PT/INR [facility] Phone: Start: 03-25-2017 End: 03-25-2017 DMB DMB [facility] [employer] Phone: Start: 03-25-2017 End: 03-25-2017 Follow Up Appt 1 month Follow Up Appt 1 month [facility] [employer] Phone: Start: 02-14-2013 End: 02-14-2013 [facility] Phone: Start: 02-14-2013 End: 02-14-2013 Follow Up Appt Other Follow Up Appt Other [facility] Phone: Start: 02-14-2013 End: 02-14-2013 [facility] Phone: Start: 02-14-2013 End: 02-14-2013 Follow Up Appt Other Follow Up Appt Other [facility] Phone: Start: 08-11-2012 End: 02-14-2013 Follow Up Appt 6 months Follow Up Appt 6 months [facility] Phone: Start: 08-11-2012 End: 02-14-2013 Lipid panel [AGGREGATE] *Lipid Profile [facility] Phone: Start: 08-11-2012 End: 02-14-2013 Follow Up Appt 6 months Follow Up Appt 6 months [facility] Phone: Start: 08-11-2012 End: 02-14-2013 Lipid panel [AGGREGATE] *Lipid Profile [facility] [employer] Phone: Payers Date Payer Category Payer Policy ID Unknown Summary Purpose Family History No Family History Records Found Advance Directives No Advanced Directives Records Found Additional Source Comments (unrecognized sect ion and content) No Status Records Found INFORMATION SOURCE (unrecogn ized section and content) FOR RECORDS PERTAINING TO PATIENTS WHO ARE OR HAVE BEEN ENROLLED IN A CHEMICAL DEPENDENCY/SUBSTANCEABUSE PROGRAM, SOME INFORMATION MAY BE OMITTED. This clinical summary was aggregated from multiple sources. Caution should be exercised in using it in the provision of clinical care. This summary normalizes information from multiple sources, and as a consequence, information in this document may materially change the coding, format and clinical context of patient data. In addition, data may be omitted in some cases. CLINICAL DECISIONS SHOULD BE BASED ON THE PRIMARY CLINICAL RECORDS. [employer] provides no warranty or guarantee of the accuracy or completeness of information in this document.
== END | disposition home or self-care (01) ==
LOC: POLAB3 15:20
PROVIDERS: PCP Family Medicine Geriatric Medicine; Visit Provider Family Medicine Geriatric Medicine
DX: E11.65 Type 2 diabetes mellitus with hyperglycemia (principal); I10 Essential (primary) hypertension; M10.9 Gout, unspecified; E55.9 Vitamin D deficiency, unspecified; Z12.5 Encounter for screening for malignant neoplasm of prostate
CPT/HCPCS: 36415; 80053; 82306; 84153; 84443; 84550; 85025; G0103

== ENCOUNTER → 2024-01-28 | Outpatient (CLI) | payer MEDICARE, SELFPAY | END | disposition home or self-care (01) | LOC: SL 09:47 | PROVIDERS: PCP Family Medicine Geriatric Medicine; Referring Provider Nurse Practitioner Acute Care; Visit Provider Nurse Practitioner Acute Care | DX: Z00.00 Encounter for general adult medical examination without abnormal findings (principal) ==

== ENCOUNTER → 2024-02-09 | Outpatient (CLI) | payer MEDICARE, SELFPAY | END | disposition home or self-care (01) | LOC: PSN 08:31 | PROVIDERS: PCP Family Medicine Geriatric Medicine; Referring Provider Family Medicine Geriatric Medicine; Visit Provider Family Medicine Geriatric Medicine | DX: R68.83 Chills (without fever) (principal) | CPT/HCPCS: 87631 ==

== ENCOUNTER → 2024-03-22 | Outpatient (CLI) | payer MEDICARE, SELFPAY ==
[2024-03-22 12:36] LABS: Absolute Lymphocyte Count 1.16 X10^3/uL (0.83-4.51); Absolute Neutrophil Count 3.5 X10^3/uL (2.0-7.7); Basophil# 0.05 X10^3/uL; Eosinophils% 1.9 % (0-5); Hematocrit 37.4 % (40-54); Hemoglobin 12.1 g/dL (13.0-16.5); Lymphocyte # 1.16 X10^3/ul (0.83-4.51); Lymphocyte % 22.2 % (19-41); Mean Corp Hgb Conc 32.4 g/dL (32-36); Mean Corpuscular Hgb 30.7 pg (27.0-32.0); Mean Corpuscular Volume 94.9 fL (80-94); Mean Platelet Vol. 9.4 fl (6.2-12.0); Monocyte# 0.36 X10^3/uL; Monocyte% 6.9 % (0-10); NRBC Flagged by Analyzer 0 % (0-5); Neutrophil # 3.54 X10^3/uL (2.7-7.7); Neutrophil % 67.6 % (47-70); Platelet Count 178 K/mm3 (150-450); RBC Distribution Width CV 13.9 % (11.6-14.6); RBC Distribution Width SD 48.4 fl (35.1-43.9); Red Blood Count 3.94 M/mm3 (4.6-6.2); White Blood Count 5.2 K/mm3 (4.4-11.0)
[2024-03-22 13:39] LABS: ALB/GLOB Ratio 1.2 RATIO (0.9-2.4); AST(SGOT) 20 U/L (15-37); Alanine Aminotransfer ALT/SGPT 40 U/L (16-61); Albumin, Serum 3.7 g/dL (3.2-5.0); Alkaline Phosphatase 56 U/L (45-117); Anion Gap 9 (5-15); BUN 17 mg/dL (7-18); BUN/Creat Ratio 16.3 RATIO (10-20); Calcium,Total 9.4 mg/dL (8.5-10.1); Chloride 106 mmol/L (98-107); Creatinine, Serum 1.04 mg/dL (0.70-1.30); EST Glomerular Filtration Rate 75 mL/min (>60); Est Glom Filt Rate - Afr Amer 91 mL/min (>60); Globulin 3.1 g/dL (2.2-4.2); Glucose 215 mg/dL (74-106); Protein, Total 6.8 g/dL (6.4-8.2); Sodium Level 139 mmol/L (136-145); Uric Acid 2.6 mg/dL (3.5-7.2)
== END | disposition home or self-care (01) ==
LOC: LAB 11:46
PROVIDERS: PCP Family Medicine Geriatric Medicine; Referring Provider Family Medicine Geriatric Medicine; Visit Provider Family Medicine Geriatric Medicine
DX: E11.65 Type 2 diabetes mellitus with hyperglycemia (principal); I10 Essential (primary) hypertension; M10.9 Gout, unspecified; E55.9 Vitamin D deficiency, unspecified
CPT/HCPCS: 36415; 80053; 82306; 84550; 85025

== ENCOUNTER → 2024-06-23 | Outpatient (CLI) | payer MEDICARE, SELFPAY ==
[2024-06-23 10:02] LABS: Absolute Lymphocyte Count 1.28 X10^3/uL (0.83-4.51); Basophil# 0.06 X10^3/uL; Basophil% 1.2 % (0-1); Eosinophil# 0.13 X10^3/uL; Eosinophils% 2.7 % (0-5); Hematocrit 37.7 % (40-54); Hemoglobin 12.3 g/dL (13.0-16.5); Lymphocyte # 1.28 X10^3/ul (0.83-4.51); Lymphocyte % 26.4 % (19-41); Mean Corp Hgb Conc 32.6 g/dL (32-36); Mean Corpuscular Hgb 30.5 pg (27.0-32.0); Mean Corpuscular Volume 93.5 fL (80-94); Mean Platelet Vol. 9.1 fl (6.2-12.0); Monocyte% 8.2 % (0-10); NRBC Flagged by Analyzer 0 % (0-5); Neutrophil # 2.96 X10^3/uL (2.7-7.7); Neutrophil % 61.1 % (47-70); Platelet Count 219 K/mm3 (150-450); RBC Distribution Width CV 13.8 % (11.6-14.6); RBC Distribution Width SD 47.3 fl (35.1-43.9); Red Blood Count 4.03 M/mm3 (4.6-6.2); White Blood Count 4.9 K/mm3 (4.4-11.0)
[2024-06-23 11:00] LABS: ALB/GLOB Ratio 1.3 RATIO (0.9-2.4); AST(SGOT) 19 U/L (15-37); Alanine Aminotransfer ALT/SGPT 40 U/L (16-61); Albumin, Serum 3.7 g/dL (3.2-5.0); Alkaline Phosphatase 60 U/L (45-117); Anion Gap 10 (5-15); BUN 14 mg/dL (7-18); BUN/Creat Ratio 12.1 RATIO (10-20); Calcium,Total 9.1 mg/dL (8.5-10.1); Chloride 107 mmol/L (98-107); Creatinine, Serum 1.16 mg/dL (0.70-1.30); EST Glomerular Filtration Rate 66 mL/min (>60); Est Glom Filt Rate - Afr Amer 80 mL/min (>60); Globulin 2.9 g/dL (2.2-4.2); Glucose 146 mg/dL (74-106); Protein, Total 6.6 g/dL (6.4-8.2); Sodium Level 140 mmol/L (136-145)
[2024-06-23 11:23] LABS: Vitamin D,25 Hydroxy 29.1 ng/mL
== END | disposition home or self-care (01) ==
PROVIDERS: PCP Family Medicine Geriatric Medicine; Visit Provider Family Medicine Geriatric Medicine
DX: E11.65 Type 2 diabetes mellitus with hyperglycemia (principal); I10 Essential (primary) hypertension; M10.9 Gout, unspecified; E55.9 Vitamin D deficiency, unspecified
CPT/HCPCS: 36415; 80053; 82306; 84443; 84550; 85025

== ENCOUNTER → 2024-07-10 | Outpatient (CLI) | payer MEDICARE, SELFPAY ==
--- NOTE | 2024-07-10 16:06 | RAD_ITS ---
STUDY: X-RAY - RIGHT KNEE REASON FOR EXAM: Male, 68 years old. PAIN TECHNIQUE: 2 views of the right knee. COMPARISON: Right knee radiographs dated 06/22/2022. FINDINGS: Normal visualized distal femur. Normal visualized proximal tibia and fibula. Normal proximal tibiofibular articulation. There is no demonstrated fracture. There is mild degenerative arthrosis of the medial femorotibial compartment. There is mild degenerative arthrosis of the lateral femorotibial compartment. There is mild degenerative arthrosis of the patellofemoral articulation. There are atherosclerotic calcifications. RAD/Knee 1 or 2 Views IMPRESSION: Mild tricompartment degenerative arthrosis. No demonstrated fracture. Electronically Signed: Thong Valencia MD at 13:04 EDT ,
== END | disposition home or self-care (01) ==
LOC: RAD 16:05
PROVIDERS: PCP Family Medicine Geriatric Medicine; Referring Provider Family Medicine Geriatric Medicine; Visit Provider Family Medicine Geriatric Medicine
DX: M25.561 Pain in right knee (principal)
CPT/HCPCS: 73560

== ENCOUNTER → 2024-08-03 | Outpatient (CLI) | payer MEDICARE, SELFPAY ==
--- NOTE | 2024-08-03 11:53 | MRI_ITS ---
STUDY: MRI RIGHT KNEE REASON FOR EXAM: Male, 68 years old. Right knee pain. Osteoarthritis. TECHNIQUE: Standardized fat and water weighted pulse sequences were obtained in all 3 orthogonal planes. COMPARISON: Right knee radiographs dated 07/10/2024. FINDINGS: There is a possible small horizontal-oblique undersurface tear of the posterior horn of the medial meniscus (sagittal T2 series 4 images 21-22). Normal hyaline cartilage of the medial femorotibial compartment. Normal medial femoral condyle and tibial plateau. Normal medial collateral ligamentous complex (MCL). Normal distal semimembranosus, gracilis and semitendinosus tendons. Normal lateral meniscus. Normal hyaline cartilage of the lateral femorotibial compartment. Normal lateral femoral condyle and tibial plateau. Normal proximal tibiofibular articulation. Normal lateral collateral (fibular) ligament. Normal popliteus tendon. Normal biceps femoris tendon. Normal anterior cruciate ligament (ACL). Normal posterior cruciate ligament (PCL). There is low-grade chondromalacia along the patellar apex (axial T2 series 2 image 10) Congruent patellofemoral articulation. Normal medial and lateral patellar retinaculum. Normal quadriceps tendon. Normal patellar tendon. Normal Hoffa''s fat pad. There is a small joint effusion. There is a small popliteal cyst. There is mild subcutaneous soft tissue edema along the anteromedial aspect of the knee. The otherwise visualized osseous structures are unremarkable. MRI/Lower Ext Joint Only (Routine) IMPRESSION: Possible small horizontal-oblique undersurface tear of the posterior horn of the medial meniscus. Low-grade chondromalacia patellae. Small joint effusion with a small popliteal cyst. Mild subcutaneous soft tissue edema along the anteromedial aspect of the knee. Electronically Signed: Thong Valencia MD at 13:42 EDT ,
== END | disposition home or self-care (01) ==
LOC: MRI 11:29
PROVIDERS: PCP Family Medicine Geriatric Medicine; Referring Provider Family Medicine Geriatric Medicine; Visit Provider Family Medicine Geriatric Medicine
DX: M17.11 Unilateral primary osteoarthritis, right knee (principal); M25.561 Pain in right knee
CPT/HCPCS: 73721

== ENCOUNTER → 2024-09-12 | Outpatient (CLI) | payer MEDICARE, SELFPAY ==
[2024-09-12 11:19] LABS: Absolute Lymphocyte Count 1.03 X10^3/uL (0.83-4.51); Absolute Neutrophil Count 5.6 X10^3/uL (2.0-7.7); Basophil# 0.04 X10^3/uL; Basophil% 0.6 % (0-1); Eosinophil# 0.03 X10^3/uL; Eosinophils% 0.4 % (0-5); Hematocrit 39.8 % (40-54); Hemoglobin 13.2 g/dL (13.0-16.5); Lymphocyte # 1.03 X10^3/ul (0.83-4.51); Lymphocyte % 14.4 % (19-41); Mean Corp Hgb Conc 33.2 g/dL (32-36); Mean Corpuscular Hgb 30.3 pg (27.0-32.0); Mean Corpuscular Volume 91.3 fL (80-94); Mean Platelet Vol. 9.4 fl (6.2-12.0); Monocyte# 0.46 X10^3/uL; Monocyte% 6.4 % (0-10); NRBC Flagged by Analyzer 0 % (0-5); Neutrophil # 5.56 X10^3/uL (2.7-7.7); Neutrophil % 77.6 % (47-70); Platelet Count 205 K/mm3 (150-450); RBC Distribution Width CV 13.5 % (11.6-14.6); RBC Distribution Width SD 45.1 fl (35.1-43.9); Red Blood Count 4.36 M/mm3 (4.6-6.2); White Blood Count 7.2 K/mm3 (4.4-11.0)
[2024-09-12 11:55] LABS: Vitamin D,25 Hydroxy 21.1 ng/mL
[2024-09-12 12:06] LABS: ALB/GLOB Ratio 1.2 RATIO (0.9-2.4); AST(SGOT) 34 U/L (15-37); Alanine Aminotransfer ALT/SGPT 72 U/L (16-61); Albumin, Serum 3.9 g/dL (3.2-5.0); Alkaline Phosphatase 64 U/L (45-117); Anion Gap 8 (5-15); BUN 17 mg/dL (7-18); BUN/Creat Ratio 14.7 RATIO (10-20); Calcium,Total 10.4 mg/dL (8.5-10.1); Chloride 101 mmol/L (98-107); Creatinine, Serum 1.16 mg/dL (0.70-1.30); EST Glomerular Filtration Rate 66 mL/min (>60); Est Glom Filt Rate - Afr Amer 80 mL/min (>60); Globulin 3.2 g/dL (2.2-4.2); Glucose 229 mg/dL (74-106); Protein, Total 7.1 g/dL (6.4-8.2); Sodium Level 136 mmol/L (136-145); Uric Acid 3.2 mg/dL (3.5-7.2)
== END | disposition home or self-care (01) ==
LOC: LAB.FUTURE 10:36 → POLAB3 12:13
PROVIDERS: PCP Family Medicine Geriatric Medicine; Visit Provider Family Medicine Geriatric Medicine
DX: E11.65 Type 2 diabetes mellitus with hyperglycemia (principal); I10 Essential (primary) hypertension; M10.9 Gout, unspecified; E55.9 Vitamin D deficiency, unspecified; E03.9 Hypothyroidism, unspecified; R68.83 Chills (without fever)
CPT/HCPCS: 36415; 80053; 82306; 84443; 84550; 85025; 87631

== ENCOUNTER → 2024-09-12 | Outpatient (CLI) | payer MEDICARE, SELFPAY ==
--- NOTE | 2024-09-12 12:17 | CT_ITS ---
STUDY: CT BRAIN WITHOUT CONTRAST REASON FOR EXAM: Male, 68 years old. HEADACHE RADIATION DOSAGE (If Supplied By Facility): CTDIvol = ( 44.99 ) mGy, DLP = ( 829.85 ) mGycm TECHNIQUE: Transaxial CT imaging of the brain was performed without administration of intravenous contrast material. Individualized dose optimization techniques were used for this CT. COMPARISON: No relevant priors. FINDINGS: Normal soft tissue structures. Normal calvarium. There is mild cerebral atrophy with widening of the extra-axial spaces and ventricular dilatation. There are areas of decreased attenuation within the white matter tracts of the supratentorial brain, consistent with microvascular disease changes. Tiny old lacunar infarct in the right basal ganglion. Normal brainstem. Normal cerebellum. There is no intracranial hemorrhage. There are no findings of an acute ischemic infarction. Normal visualized paranasal sinuses. CT/Brain/Head without Contrast IMPRESSION: Chronic involutional changes of the brain. Electronically Signed: Berhane Carmona MD at 12:36 EST ,
== END | disposition home or self-care (01) ==
LOC: CT 12:17
PROVIDERS: PCP Family Medicine Geriatric Medicine; Referring Provider Family Medicine Geriatric Medicine; Visit Provider Family Medicine Geriatric Medicine
DX: R51.9 Headache, unspecified (principal)
CPT/HCPCS: 70450

== ENCOUNTER → 2024-11-13 | Outpatient (CLI) | payer MEDICARE, SELFPAY | END | disposition home or self-care (01) | LOC: POLAB3 16:08 | PROVIDERS: PCP Family Medicine Geriatric Medicine; Visit Provider Family Medicine Geriatric Medicine | DX: E03.9 Hypothyroidism, unspecified (principal); R68.83 Chills (without fever) | CPT/HCPCS: 36415; 84443; 87631 ==

== ENCOUNTER → 2024-12-15 | Outpatient (CLI) | payer OTHER, SELFPAY ==
[2024-12-15 10:22] LABS: Absolute Lymphocyte Count 1.12 X10^3/uL (0.83-4.51); Absolute Neutrophil Count 2.9 X10^3/uL (2.0-7.7); Basophil# 0.04 X10^3/uL; Basophil% 0.9 % (0-1); Eosinophil# 0.09 X10^3/uL; Hematocrit 37.4 % (40-54); Hemoglobin 12.5 g/dL (13.0-16.5); Lymphocyte # 1.12 X10^3/ul (0.83-4.51); Lymphocyte % 24.8 % (19-41); Mean Corp Hgb Conc 33.4 g/dL (32-36); Mean Corpuscular Hgb 31.2 pg (27.0-32.0); Mean Corpuscular Volume 93.3 fL (80-94); Mean Platelet Vol. 9.2 fl (6.2-12.0); Monocyte# 0.38 X10^3/uL; Monocyte% 8.4 % (0-10); NRBC Flagged by Analyzer 0 % (0-5); Neutrophil # 2.86 X10^3/uL (2.7-7.7); Neutrophil % 63.2 % (47-70); Platelet Count 227 K/mm3 (150-450); RBC Distribution Width CV 14.5 % (11.6-14.6); RBC Distribution Width SD 49.6 fl (35.1-43.9); Red Blood Count 4.01 M/mm3 (4.6-6.2); White Blood Count 4.5 K/mm3 (4.4-11.0)
[2024-12-15 10:35] LABS: Microalbumin,Random Urine < 12.0 mg/L (NO RANGE EST.); Microalbumin:Creatinine Ratio UNABLE TO CALCULATE mg/g CRE
[2024-12-15 10:50] LABS: Hemoglobin A1c 9.2 % (<=5.6)
[2024-12-15 12:06] LABS: ALB/GLOB Ratio 1.9 RATIO (0.9-2.4); AST(SGOT) 25 U/L (<=37); Alanine Aminotransfer ALT/SGPT 44 U/L (<=46); Albumin, Serum 4.2 g/dL (3.4-4.8); Alkaline Phosphatase 56 U/L (40-129); Anion Gap 12 (5-15); BUN 16 mg/dL (4-19); BUN/Creat Ratio 14.7 RATIO (10-20); Calcium,Total 9.8 mg/dL (7.6-11.0); Carbon Dioxide 24.9 mmol/L (21.0-32.0); Chloride 102 mmol/L (98-108); Creatinine, Serum 1.09 mg/dL (0.70-1.20); EST Glomerular Filtration Rate 73 (>60); Globulin 2.2 g/dL (2.2-4.2); Glucose 167 mg/dL (70-99); PSA,Total - Annual Screen 0.12 ng/mL (0.02-4.00); Potassium 4.2 mmol/L (3.3-5.1); Protein, Total 6.4 g/dL (5.9-8.4); Sodium Level 139 mmol/L (133-145); Total Bilirubin 0.19 mg/dL (0.00-1.30); Vitamin D,25 Hydroxy 22.9 ng/mL (30-100)
[2024-12-15 12:20] LABS: Cholesterol 132 mg/dL (<=200); High Density Lipoprotein 37 mg/dL; Low Density Lipoprotein Calc. 51 mg/dL; Triglycerides 224 mg/dL; Uric Acid 2.6 mg/dL (3.5-7.2); Very Low Density Lipoprotein 45 mg/dL (5-40); cholesterol:hdl ratio screen 3.61
== END | disposition home or self-care (01) ==
PROVIDERS: PCP Family Medicine Geriatric Medicine; Visit Provider Family Medicine Geriatric Medicine
DX: E78.5 Hyperlipidemia, unspecified (principal); E11.65 Type 2 diabetes mellitus with hyperglycemia; I10 Essential (primary) hypertension; M10.9 Gout, unspecified; Z12.5 Encounter for screening for malignant neoplasm of prostate; E55.9 Vitamin D deficiency, unspecified
CPT/HCPCS: 36415; 80053; 80061; 82043; 82306; 82570; 83036; 84153; 84443; 84550; 85025; G0103

== ENCOUNTER → 2025-04-13 | Outpatient (CLI) | payer OTHER, SELFPAY ==
[2025-04-13 09:47] LABS: Hematocrit 42.3 % (40-54); Hemoglobin 14.5 g/dL (13.0-16.5); Immature Granulocytes Count 0.030 X10^3/uL (0.0-0.0); Mean Corp Hgb Conc 34.3 g/dL (32-36); Mean Corpuscular Volume 91.6 fL (80-94); Mean Platelet Vol. 9.2 fl (6.2-12.0); NRBC Flagged by Analyzer 0 % (0-5); Platelet Count 213 K/mm3 (150-450); RBC Distribution Width CV 13.8 % (11.6-14.6); RBC Distribution Width SD 45.7 fl (35.1-43.9); Red Blood Count 4.62 M/mm3 (4.6-6.2); White Blood Count 6.1 K/mm3 (4.4-11.0)
--- NOTE | 2025-04-13 10:50 | RAD_ITS ---
EXAM: XR Abdomen, 1 View CLINICAL INDICATION: NAUSEA TECHNIQUE: Frontal supine view of the abdomen/pelvis. COMPARISON: No relevant prior studies available. FINDINGS: GASTROINTESTINAL TRACT: Fecal retention in the colon consistent with constipation. No dilation. BONES/JOINTS: Unremarkable. No acute fracture. RAD/Abd Inc Decub and/or Erect IMPRESSION: Fecal retention in the colon consistent with constipation. Reading Location: [facility]
[2025-04-13 12:39] LABS: AST(SGOT) 24 U/L (<=37); Alanine Aminotransfer ALT/SGPT 58 U/L (<=46); Albumin, Serum 4.6 g/dL (3.4-4.8); Alkaline Phosphatase 62 U/L (40-129); Anion Gap 16 (5-15); BUN 23 mg/dL (4-19); BUN/Creat Ratio 19.6 RATIO (10-20); CPK Total, Creatine Kinase 65 U/L (24-195); Calcium,Total 10.5 mg/dL (7.6-11.0); Carbon Dioxide 22.9 mmol/L (21.0-32.0); Chloride 98 mmol/L (98-108); Cholesterol 190 mg/dL (<=200); Globulin 2.7 g/dL (2.2-4.2); Glucose 224 mg/dL (70-99); Low Density Lipoprotein Calc. 64 mg/dL; Potassium 4.4 mmol/L (3.3-5.1); Triglycerides 438 mg/dL; Troponin T High Sensitivity 15 ng/L (<=22); Uric Acid 3.3 mg/dL (3.5-7.2); Very Low Density Lipoprotein 88 mg/dL (5-40); Vitamin D,25 Hydroxy 26.6 ng/mL (30-100); cholesterol:hdl ratio screen 4.95
[2025-04-14 04:07] LABS: Myoglobin, Serum 38 ng/mL (28-72)
== END | disposition home or self-care (01) ==
PROVIDERS: PCP Family Medicine Geriatric Medicine; Referring Provider Family Medicine Geriatric Medicine; Visit Provider Family Medicine Geriatric Medicine
DX: R11.0 Nausea (principal); E11.65 Type 2 diabetes mellitus with hyperglycemia; R53.1 Weakness; E78.5 Hyperlipidemia, unspecified; I10 Essential (primary) hypertension; M10.9 Gout, unspecified; E55.9 Vitamin D deficiency, unspecified; R07.9 Chest pain, unspecified
CPT/HCPCS: 36415; 74019; 80053; 80061; 82306; 82550; 83036; 83874; 84443; 84484; 84550; 85025; 87086

== ENCOUNTER → 2025-05-04 | Outpatient (CLI) | payer OTHER, SELFPAY ==
[2025-05-04 09:58] LABS: CORTISOL AM 1.31 ug/dL (6.02-18.40)
[2025-05-04 16:54] LABS: Xtra Tube Kwok EXTRA TUBE
== END | disposition home or self-care (01) ==
LOC: POLAB3 08:49
PROVIDERS: PCP Family Medicine Geriatric Medicine; Visit Provider Family Medicine Geriatric Medicine
DX: E03.9 Hypothyroidism, unspecified (principal); E11.65 Type 2 diabetes mellitus with hyperglycemia
CPT/HCPCS: 36415; 82533; 84443

== ENCOUNTER → 2025-05-11 | Outpatient (CLI) | payer MEDICARE, SELFPAY ==
--- NOTE | 2025-05-11 09:45 | MRI_ITS ---
PROCEDURE: MRI brain without contrast 05/11/2025 REASON FOR EXAM: DIZZINESS TECHNIQUE: BRAIN WITHOUT CONTRAST Multiplanar and multisequence images were obtained. COMPARISON: CT head 09/12/2024. FINDINGS: Brain: Moderate cerebral atrophy and chronic periventricular white matter disease. No acute intracranial hemorrhage. No restricted diffusion. No mass effect or midline shift Ventricles: Normal. Major Intracranial Vessels: Unremarkable Sinuses: Clear. Mastoids: Clear. MRI/Brain without Contrast IMPRESSION: No acute brain abnormalities. Chronic changes as detailed. Reading Location: [facility]
--- NOTE | 2025-05-11 09:45 | MRI_ITS ---
PROCEDURE: MRI brain without contrast 05/11/2025 REASON FOR EXAM: DIZZINESS TECHNIQUE: BRAIN WITHOUT CONTRAST Multiplanar and multisequence images were obtained. COMPARISON: CT head 09/12/2024. FINDINGS: Brain: Moderate cerebral atrophy and chronic periventricular white matter disease. No acute intracranial hemorrhage. No restricted diffusion. No mass effect or midline shift Ventricles: Normal. Major Intracranial Vessels: Unremarkable Sinuses: Clear. Mastoids: Clear. MRI/Brain without Contrast IMPRESSION: No acute brain abnormalities. Chronic changes as detailed. Reading Location: [facility]
== END | disposition home or self-care (01) ==
PROVIDERS: PCP Family Medicine Geriatric Medicine; Referring Provider Family Medicine Geriatric Medicine; Visit Provider Family Medicine Geriatric Medicine
DX: R42 Dizziness and giddiness (principal)
CPT/HCPCS: 70551

== ENCOUNTER → 2025-08-03 | Outpatient (CLI) | payer MEDICARE, SELFPAY ==
[2025-08-03 09:28] LABS: Hematocrit 36.1 % (40-54); Hemoglobin 12.4 g/dL (13.0-16.5); Immature Granulocytes Count 0.010 X10^3/uL (0.0-0.0); Mean Corp Hgb Conc 34.3 g/dL (32-36); Mean Corpuscular Volume 91.9 fL (80-94); Mean Platelet Vol. 9.0 fl (6.2-12.0); NRBC Flagged by Analyzer 0 % (0-5); Platelet Count 209 K/mm3 (150-450); RBC Distribution Width CV 14.1 % (11.6-14.6); RBC Distribution Width SD 48.3 fl (35.1-43.9); Red Blood Count 3.93 M/mm3 (4.6-6.2); White Blood Count 5.1 K/mm3 (4.4-11.0)
[2025-08-03 10:11] LABS: Cholesterol 127 mg/dL (<=200); Low Density Lipoprotein Calc. 51 mg/dL; Triglycerides 280 mg/dL; Uric Acid 3.6 mg/dL (3.5-7.2); Very Low Density Lipoprotein 56 mg/dL (5-40); Vitamin D,25 Hydroxy 25.5 ng/mL (30-100); cholesterol:hdl ratio screen 3.96
[2025-08-03 10:13] LABS: AST(SGOT) 37 U/L (<=37); Alanine Aminotransfer ALT/SGPT 35 U/L (<=46); Albumin, Serum 4.2 g/dL (3.4-4.8); Alkaline Phosphatase 52 U/L (40-129); Anion Gap 12 (5-15); BUN 16 mg/dL (4-19); BUN/Creat Ratio 14.5 RATIO (10-20); Calcium,Total 9.9 mg/dL (7.6-11.0); Carbon Dioxide 24.1 mmol/L (21.0-32.0); Chloride 103 mmol/L (98-108); Globulin 2.5 g/dL (2.2-4.2); Glucose 149 mg/dL (70-99); Potassium 4.1 mmol/L (3.3-5.1)
[2025-08-03 16:45] LABS: Xtra Tube Kwok EXTRA TUBE
== END | disposition home or self-care (01) ==
LOC: POLAB3 09:05
PROVIDERS: PCP Family Medicine Geriatric Medicine; Visit Provider Family Medicine Geriatric Medicine
DX: E78.5 Hyperlipidemia, unspecified (principal); E11.65 Type 2 diabetes mellitus with hyperglycemia; I10 Essential (primary) hypertension; M10.9 Gout, unspecified; E55.9 Vitamin D deficiency, unspecified
CPT/HCPCS: 36415; 80053; 80061; 82306; 83036; 84443; 84550; 85025